=== PATIENT | male | born 1940 ===

== ENCOUNTER 2017-11-13 11:29 | Emergency (ER) | payer MEDICAID, MEDICARE, OTHER ==
[2017-11-13 11:38] VITALS: BP 169/60; RESP 18; TEMP 98.5; O2SAT 96
--- NOTE | 2017-11-13 13:05 | ED PDOC ---
HPI: General Adult Time Seen by Provider: 11/13/17 11:39 Chief Complaint (Nursing): Trauma Chief Complaint (Provider): fall and head injury History Per: Patient History/Exam Limitations: no limitations Onset/Duration Of Symptoms: Days (11/13/17) Additional Complaint(s): Lul Olivarez, a 77 year old male with a past medical history of hypertension, diabetes, chronic leg pain, and atrial fibrillation presents to the ED complaining of falling today morning. Reports he felt dizzy and hit his head. Patient has chronic pain on both legs but the pain on the right foot is greater than left foot. Denies loss of consciousness, shortness of breath, or other complaints. PMD: Kenneth Bergman Against Medical Advice - AMA Patient Left Against Medical Advice: The patient declines admission to the hospital and wishes to leave the Emergency Department. This action is against my medical advice. This decision was made with informed refusal. The patient was told that admission to the hospital is necessary. Explanation of the reasons why were discussed. The risks of leaving were explained to the patient and include, but are not limited to, worsening of known or currently unknown conditions, permanent disability and from undiagnosed or untreated conditions. The patient has the capacity to make this informed decision and understands my explanation of the current medical problem and risks of leaving. The patient voluntarily accepts these risks and signed an AMA form documenting our conversation. The patient was given the opportunity to ask questions and reconsider. The patient was encouraged to return to the Emergency Department at any time for further care. Past Medical History Reviewed: Historical Data, Nursing Documentation, Vital Signs Vital Signs: Last Vital Signs Temp 98.5 F 11/13/17 11:35 Pulse 51 L 11/13/17 15:07 Resp 18 11/13/17 11:35 BP 169/60 H 11/13/17 11:35 Pulse Ox 96 11/13/17 15:07 - Medical History PMH: Atrial Fibrillation, Diabetes, HTN Other PMH: chronic leg pain - Family History Family History: States: Unknown Family Hx - Social History Current smoker - smoking cessation education provided: Yes - Home Medications Home Medications: Ambulatory Orders Medication Instructions Recorded Carvedilol [Coreg] 25 mg PO Q12H 11/13/17 Clopidogrel [Plavix] 75 mg PO DAILY 11/13/17 Ergocalciferol (Vitamin D2) 50,000 unit PO QWK 11/13/17 [Vitamin D2] Gabapentin [Neurontin] 300 mg PO Q8H 11/13/17 Glimepiride [amaRYL] 2 mg PO BID 11/13/17 [id number] Ethyl Esters 1 GM 2 gm PO BID 11/13/17 [Lovaza] Pioglitazone [Actos] 45 mg PO DAILY 11/13/17 Ramipril [Altace] 10 mg PO DAILY 11/13/17 Simvastatin [Zocor] 40 mg PO HS 11/13/17 - Allergies Allergies/Adverse Reactions: Allergies Allergy/AdvReac Type Severity Reaction Status Date / Time No Known Allergies Allergy Verified 11/13/17 11:43 Review of Systems ROS Statement: Except As Marked, All Systems Reviewed And Found Negative Respiratory: Negative for: Shortness of Breath Musculoskeletal: Positive for: Leg Pain (chronic bilateral; greater on the right foot ) Neurological: Positive for: Dizziness. Negative for: Other (loss of consciousness) Physical Exam - Reviewed Nursing Documentation Reviewed: Yes Vital Signs Reviewed: Yes - Physical Exam Appears: Positive for: Well, Non-toxic, No Acute Distress Head Exam: Positive for: ATRAUMATIC, NORMAL INSPECTION, NORMOCEPHALIC Skin: Positive for: Normal Color, Warm, Dry Eye Exam: Positive for: EOMI, Normal appearance, PERRL ENT: Positive for: Normal ENT Inspection Neck: Positive for: Normal, Painless ROM, Supple. Negative for: Decreased ROM Cardiovascular/Chest: Positive for: Regular Rate, Rhythm. Negative for: Murmur , Bradycardia Respiratory: Positive for: Normal Breath Sounds. Negative for: Accessory Muscle Use, Wheezing, Respiratory Distress Gastrointestinal/Abdominal: Positive for: Normal Exam, Bowel Sounds, Soft. Negative for: Tenderness, Guarding Back: Positive for: Normal Inspection. Negative for: L CVA Tenderness, R CVA Tenderness Extremity: Positive for: Tenderness (right foot diffuse tenderness). Negative for: Swelling, Other (redness ) Neurologic/Psych: Positive for: Alert, Oriented (x3) - ECG ECG: Positive for: Interpreted By Me, Viewed By Me ECG Rhythm: Positive for: Normal QRS, Normal ST Segment, Sinus Bradycardia Rate: 51 O2 Sat by Pulse Oximetry: 96 Medical Decision Making Medical Decision Making: Time: 12:06 Initial Impression: fall, dizziness, and foot pain Differential Diagnosis includes but is not limited to: Syncope, Atrial fibrillation, r/o intracranial bleeding Initial Plan: --Head w/o contrast [CT] --EKG --BMP --Troponin I --CBC --Partial thromboplastin time [COAG] --Prothrombin time [COAG] --Right foot X-ray --Hip Bi with pelvis fall protocol --Reevaluation --Patient refused blood work Time: 13:40 FINDINGS: HEMORRHAGE: No intracranial hemorrhage. 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 Diffuse cerebral atrophy. Moderate chronic periventricular white matter microvascular ischemic changes. VENTRICLES: Prominent in excess of cerebral atrophy. CALVARIUM: Unremarkable. PARANASAL SINUSES: Unremarkable as visualized. No significant inflammatory changes. MASTOID AIR CELLS: Unremarkable as visualized. No inflammatory changes. OTHER FINDINGS: None. IMPRESSION: No acute intracranial pathology. 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 Time: 13:41 FINDINGS: BONES: Diffuse osteopenia. No acute fracture. JOINTS: Degenerative changes. SOFT TISSUES: First digit swelling. OTHER FINDINGS: Inferior plantar calcaneal spur. IMPRESSION: No demonstrated acute fracture or dislocation. Diffuse osteopenia limits sensitivity for radio occult fractures. If there is clinical concern for acute fracture, MRI can be obtained for further evaluation. Documented by Radha Guy acting as a scribe for Sundar Jim MD. All medical record entries made by the Scribe were at my direction and personally dictated by me. I have reviewed the chart and agree that the record accurately reflects my personal performance of the history, physical exam, medical decision making, and the department course for this patient. I have also personally directed, reviewed, and agree with the discharge instructions and disposition. Disposition - Clinical Impression Clinical Impression: Fall, Chronic leg pain, Left against medical advice - Patient ED Disposition Is Patient to be Admitted: No Doctor Will See Patient In The: Office Counseled Patient/Family Regarding: Studies Performed, Diagnosis, Need For Followup - Disposition Referrals: Kenneth Bergman MD [Family Provider] - Disposition: Against Medical Advice Disposition Time: 15:05 Condition: GOOD Additional Instructions: Follow up with your PCP in 2-3 days. Instructions: Preventing Falls in the Older Adult, Chronic Pain (DC), Leaving Against Medical Advice Print Language: KENYAN
[2017-11-13 13:11] VITALS: PULSE 51
--- NOTE | 2017-11-13 13:18 | CT ---
PROCEDURE: CT HEAD WITHOUT CONTRAST. HISTORY: dizziness head injury COMPARISON: CT head dated 12/15/2013. TECHNIQUE: Axial computed tomography images were obtained through the head/brain without intravenous contrast. Radiation dose: Total exam DLP = 869.9 mGy-cm. This CT exam was performed using one or more of the following dose reduction techniques: Automated exposure control, adjustment of the mA and/or kV according to patient size, and/or use of iterative reconstruction technique. FINDINGS: HEMORRHAGE: No intracranial hemorrhage. 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 Diffuse cerebral atrophy. Moderate chronic periventricular white matter microvascular ischemic changes. VENTRICLES: Prominent in excess of cerebral atrophy. CALVARIUM: Unremarkable. PARANASAL SINUSES: Unremarkable as visualized. No significant inflammatory changes. MASTOID AIR CELLS: Unremarkable as visualized. No inflammatory changes. OTHER FINDINGS: None. IMPRESSION: No acute intracranial pathology. 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
--- NOTE | 2017-11-13 13:34 | RAD ---
PROCEDURE: Right Foot Radiographs. HISTORY: foot pain COMPARISON: None. FINDINGS: BONES: Diffuse osteopenia. No acute fracture. JOINTS: Degenerative changes. SOFT TISSUES: First digit swelling. OTHER FINDINGS: Inferior plantar calcaneal spur. IMPRESSION: No demonstrated acute fracture or dislocation. Diffuse osteopenia limits sensitivity for radio occult fractures. If there is clinical concern for acute fracture, MRI can be obtained for further evaluation.
--- NOTE | 2017-11-13 18:53 | CARD ---
APPROVED REPORT EKG Measurement Heart [id number] <Conclusion> Sinus bradycardia Otherwise normal ECG
== END 2017-11-13 16:02 | disposition left against medical advice (07) ==
LOC: H.ER 11:29
DX: G89.29 Other chronic pain (principal); M79.605 Pain in left leg; E11.9 Type 2 diabetes mellitus without complications; I48.91 Unspecified atrial fibrillation; I10 Essential (primary) hypertension; F17.200 Nicotine dependence, unspecified, uncomplicated

== ENCOUNTER 2017-11-14 11:25 | Inpatient (IN) | payer OTHER ==
--- NOTE | 2017-11-14 11:56 | ED PDOC ---
Lower Extremity Pain/Injury Time Seen by Provider: 11/14/17 11:44 Chief Complaint (Nursing): Lower Extremity Problem/Injury History Per: Family Onset/Duration Of Symptoms: Days (2) Current Symptoms Are (Timing): Still Present Severity: Moderate Pain Scale Rating Of: 4 Additional Complaint(s): Fell 2 days ago with injury to hip. Seen yesterday but refused to stay in hospital. Unable to ambulate secondary to low back and hip pain. No focal weakness. - Hip Description Of Injury: Fell Past Medical History Vital Signs: Last Vital Signs Temp 98.2 F 11/14/17 11:27 Pulse 68 11/14/17 11:27 Resp 16 11/14/17 11:27 BP 191/97 H 11/14/17 11:27 Pulse Ox 100 11/14/17 11:27 - Medical History PMH: Atrial Fibrillation, Diabetes, HTN Denies: Hepatitis, HIV, Seizures, Sexually Transmitted Disease - Family History Family History: States: Unknown Family Hx - Home Medications Home Medications: Ambulatory Orders Medication Instructions Recorded Carvedilol [Coreg] 25 mg PO Q12H 11/13/17 Clopidogrel [Plavix] 75 mg PO DAILY 11/13/17 Ergocalciferol (Vitamin D2) 50,000 unit PO QWK 11/13/17 [Vitamin D2] Gabapentin [Neurontin] 300 mg PO Q8H 11/13/17 Glimepiride [amaRYL] 2 mg PO BID 11/13/17 Rqndb-6-Rhnf Ethyl Esters 1 GM 2 gm PO BID 11/13/17 [Lovaza] Pioglitazone [Actos] 45 mg PO DAILY 11/13/17 Ramipril [Altace] 10 mg PO DAILY 11/13/17 Simvastatin [Zocor] 40 mg PO HS 11/13/17 - Allergies Allergies/Adverse Reactions: Allergies Allergy/AdvReac Type Severity Reaction Status Date / Time No Known Allergies Allergy Verified 11/13/17 11:43 Review of Systems ROS Statement: Except As Marked, All Systems Reviewed And Found Negative Musculoskeletal: Positive for: Back Pain, Leg Pain Neurological: Positive for: Weakness Physical Exam - Reviewed Nursing Documentation Reviewed: Yes Vital Signs Reviewed: Yes - Physical Exam Appears: Positive for: Non-toxic, No Acute Distress Head Exam: Positive for: ATRAUMATIC, NORMAL INSPECTION, NORMOCEPHALIC Skin: Positive for: Normal Color, Warm, DRY Eye Exam: Positive for: EOMI, Normal appearance, PERRL ENT: Positive for: Normal ENT Inspection Neck: Positive for: Normal, Painless ROM Cardiovascular/Chest: Positive for: Regular Rate, Rhythm Respiratory: Positive for: CNT, Normal Breath Sounds Gastrointestinal/Abdominal: Positive for: Normal Exam, Bowel Sounds, Soft Back: Positive for: Normal Inspection, Vertebral Tenderness (lower) Extremity: Positive for: Other (Bilat hip tenderness). Negative for: Deformity Neurologic/Psych: Positive for: Alert. Negative for: Motor/Sensory Deficits - Laboratory Results Result Diagrams: 11/14/17 13:35 11/14/17 13:35 - ECG O2 Sat by Pulse Oximetry: 100 Disposition - Clinical Impression Clinical Impression: Diabetes type 2, uncontrolled, Gait disturbance - Patient ED Disposition Is Patient to be Admitted: Yes - Disposition Disposition Time: 14:38 Condition: FAIR Forms: [facility] [facility] (Spanish) - Pt Status Changed To: Hospital Disposition Of: Inpatient - Admit Certification Admit to Inpatient:: After my assessment, the patient will require hospitalization for at least two midnights. This is because of the severity of symptoms shown, intensity of services needed, and/or the medical risk in this patient being treated as an outpatient. - POA Present On Arrival: None
[2017-11-14 13:40] LABS: BASO # 0.1 K/uL (0.0-0.2); BASO % 1.3 % (0.0-2.0); EOS # 0.1 K/uL (0.0-0.7); EOS % 1.1 % (0.0-4.0); HEMOGLOBIN 13.9 g/dL (12.0-18.0); LYMPH # 1.1 K/uL (1.0-4.3); LYMPH % 17.6 % (20.0-40.0); MEAN CELL VOLUME 91.4 fl (80.0-94.0); MEAN CORPUSCULAR HEMOGLOBIN 29.9 pg (27.0-31.0); MEAN CORPUSCULAR HGB CONC 32.7 g/dL (33.0-37.0); MEAN PLATELET VOLUME 8.8 fl (7.2-11.7); MONO # 0.6 K/uL (0.0-0.8); MONO % 9.8 % (0.0-10.0); NEUT # 4.4 K/uL (1.8-7.0); NEUT % 70.2 % (50.0-75.0); NRBC % 0.1 % (0.0-0.0); RBC 4.65 Mil/uL (4.40-5.90); RED CELL DISTRIBUTION WIDTH 14.9 % (11.5-14.5); WHITE BLOOD COUNT 6.3 K/uL (4.8-10.8)
[2017-11-14 13:48] LABS: ALB/GLOB RATIO 1.1 (1.0-2.1); ALBUMIN 3.9 g/dL (3.5-5.0); ALT/SGPT 27 U/L (21-72); AST/SGOT 20 U/L (17-59); BLOOD UREA NITROGEN 16 mg/dl (9-20); CALCIUM 10.2 mg/dL (8.4-10.2); GFR AFRICAN-AMERICAN > 60; GFR NON-AFRICAN AMERICAN > 60
[2017-11-14] MEDS ORDERED: Insulin Regular 100 units/ml SC STA (14:00)
[2017-11-14] MEDS ORDERED: Sodium Chloride 0.9% 1,000 ML IV STA (14:00)
--- NOTE | 2017-11-14 14:01 | RAD ---
PROCEDURE: Radiographs of the pelvis. HISTORY: trauma COMPARISON: None. FINDINGS: BONES: Pelvic Bones: No evidence of acute displaced fracture Hips: No evidence of acute fracture JOINTS: Sacroiliac Joints: Arthritic degenerative changes Pubic Symphysis: Arthritic changes OTHER FINDINGS: Diffuse vascular calcification. Vascular stent seen at the right proximal femur IMPRESSION: No evidence of acute fracture .
--- NOTE | 2017-11-14 14:06 | RAD ---
PROCEDURE: Radiographs of the Lumbar Spine. HISTORY: trauma COMPARISON: No prior. FINDINGS: BONES: There is a age indeterminate mild compression deformity at the superior endplate of L5 and L4. Diffuse osteopenia is noted. DISC SPACES: Mild degenerative disc changes noted. OTHER FINDINGS: None. IMPRESSION: Diffuse osteopenia. Mild age indeterminate compression deformity at the superior endplate of L4 and L5.
--- NOTE | 2017-11-14 15:03 | CP.PCM.HP ---
History of Present Illness - History of Present Illness History of Present Illness: 77 yo male with history of HTN, DM2, chronic leg pain and AFib came back with the same complaint of leg pain. Patient claimed he had been non-ambulatory for about 2 yrs because of pain on both leg and had been dependent on staying on the wheel chair at home. Attempted to stand yesterday and got dizzy and fell. Pain on both legs got worse and was seen yesterday in the ER. Xrays of the LS spine, pelvis and foot were negative for fracture. CT scan of the head was negative for bleed. He was advised to stay but refused. He is back again because of the persistent leg pain and is now willing to stay. Denied bowel or urinary dysfunction. Present on Admission - Present on Admission Any Indicators Present on Admission: No History of DVT/PE: No History of Uncontrolled Diabetes: No Urinary Catheter: No Decubitus Ulcer Present: No Review of Systems - Review of Systems All systems: reviewed and no additional remarkable complaints except (aside from those mentioned above, 14 point system review were negative by me) Past Patient History - Tetanus Immunizations Tetanus Immunization: Unknown - Past Social History Smoking Status: Heavy Smoker > 10 Cigarettes Daily Alcohol: None Drugs: Denies - CARDIAC Hx Atrial Fibrillation: Yes Hx Hypertension: Yes - PULMONARY Hx Tuberculosis: No - NEUROLOGICAL Hx Seizures: No - ENDOCRINE/METABOLIC Hx Endocrine Disorders: Yes Hx Diabetes Mellitus Type 2: Yes - HEMATOLOGICAL/ONCOLOGICAL Hx Human Immunodeficiency Virus (HIV): No - GENITOURINARY/GYNECOLOGICAL Hx Sexually Transmitted Disorders: No - PSYCHIATRIC Hx Substance Use: Yes - ANESTHESIA Hx Anesthesia: Yes Hx Anesthesia Reactions: No Hx Malignant Hyperthermia: No Meds Allergies/Adverse Reactions: Allergies Allergy/AdvReac Type Severity Reaction Status Date / Time No Known Allergies Allergy Verified 11/13/17 11:43 Physical Exam - Constitutional Appears: No Acute Distress, Combative, Agitated - Head Exam Head Exam: ATRAUMATIC - Eye Exam Eye Exam: absent: Scleral icterus - ENT Exam ENT Exam: Mucous Membranes Moist - Neck Exam Neck exam: Negative for: Meningismus - Respiratory Exam Respiratory Exam: absent: Rhonchi, Wheezes, Respiratory Distress - Cardiovascular Exam Cardiovascular Exam: REGULAR RHYTHM, +S1, +S2 - GI/Abdominal Exam GI & Abdominal Exam: Soft. absent: Tenderness - Rectal Exam Rectal Exam: Deferred - Extremities Exam Extremities exam: Positive for: tenderness (on both calves on mild palpation), pedal pulses present. Negative for: normal inspection (dried and thickened scaly skin with hyperpigmentation on anterior aspect of both legs) - Neurological Exam Neurological exam: Alert (confused and combative ) - Psychiatric Exam Psychiatric exam: Agitated - Skin Skin Exam: Dry Results - Vital Signs Recent Vital Signs: Last Vital Signs Temp 98.2 F 11/14/17 11:27 Pulse 68 11/14/17 11:27 Resp 16 11/14/17 11:27 BP 191/97 H 11/14/17 11:27 Pulse Ox 100 11/14/17 14:38 - Labs Result Diagrams: 11/14/17 13:35 11/14/17 13:35 Labs: Laboratory Results - last 24 hr 11/14/17 11/14/17 13:35 13:35 WBC 6.3 RBC 4.65 Hgb 13.9 Hct 42.5 MCV 91.4 MCH 29.9 MCHC 32.7 L RDW 14.9 H Plt Count 121 L MPV 8.8 Neut % (Auto) 70.2 Lymph % (Auto) 17.6 L [place] % (Auto) 9.8 Eos % (Auto) 1.1 Baso % (Auto) 1.3 Neut # (Auto) 4.4 Lymph # (Auto) 1.1 [place] # (Auto) 0.6 Eos # (Auto) 0.1 Baso # (Auto) 0.1 Sodium 138 Potassium 4.6 Chloride 98 Carbon Dioxide 28 Anion Gap 17 BUN 16 Creatinine 0.8 Est GFR ( Amer) > 60 Est GFR (Non-Af Amer) > 60 Random Glucose 354 H Calcium 10.2 Total Bilirubin 0.7 AST 20 ALT 27 Alkaline Phosphatase 75 Total Protein 7.3 Albumin 3.9 Globulin 3.4 Albumin/Globulin Ratio 1.1 Assessment & Plan - Assessment and Plan (Free Text) Assessment: 77 yo male with history of HTN, DM2, chronic leg pain and AFib came back with complaint of bilateral leg pain. Pain has been chronic for 2 years but recently got worse after a fall 2 days ago. 1. Leg Pain R/O PVD venous and arterial doppler of both legs PT evaluation and management refer to social service for placement Neurontin 300mg PO q 8hrs Plavix 75mg PO daily 2. DM2 BS uncontrolled accuchek ACHS with moderate Lispro coverage HgA1C, BMP in am Glucotrol 5mg PO daily (Amaryl is non-formulary) Actos 45mg PO daily 3. HTN BP elevated Coreg 25mg PO q 12hrs Altace 10mg PO daily 4. DVT prophylaxis Lovenox 40mg SC daily
[2017-11-14] MEDS ORDERED: Ergocalciferol 50,000 Intl Units Cap PO SCH (15:30)
[2017-11-14] MEDS ORDERED: Insulin Regular 100 units/ml ONE (16:17)
[2017-11-14] MEDS: Oxycodone/Acetaminophen 5/325 mg Tab PO PRN ×2 (16:21→23:35)
[2017-11-14] MEDS: Omega-3-Acid Ethyl Esters 1 GM Cap PO SCH (17:05)
[2017-11-14] MEDS: Enoxaparin 40 mg Syringe SC SCH (18:04)
[2017-11-14] MEDS: Insulin Lispro (humaLOG) 100 Units/ml Inj SC SCH ×2 (19:22→22:30)
--- NOTE | 2017-11-14 20:41 | US ---
EXAM: US Duplex Bilateral Lower Extremity Arteries CLINICAL HISTORY: 77 years old, male; Pain; Leg, lower; Bilateral; Additional info: Bilateral leg pain TECHNIQUE: Real-time ultrasound scan of the arteries of the bilateral lower extremities with 2-D celis scale, color Doppler flow and spectral waveform analysis. COMPARISON: No relevant prior studies available. FINDINGS: RIGHT OSTOMY NURSE: 140 cm/s, monophasic SFA proximal: 143 cm/s, monophasic SFA mid: 242 cm/s, monophasic SFA distal: 90 cm/s, monophasic Popliteal: 60 cm/s, monophasic VALERY: Not visualized RESTAURANT BUSSER: Not visualized DPA: Not visualized LEFT OSTOMY NURSE: 242 cm/s, monophasic SFA proximal: 153 cm/s, monophasic SFA mid: 128 cm/s, monophasic SFA distal: 68 cm/s, monophasic Popliteal: 95 cm/s, monophasic VALERY: Not visualized RESTAURANT BUSSER: Not visualized DPA: Not visualized IMPRESSION: 1. 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 2. Nonvisualization of calf arteries. Occlusion not excluded.
[2017-11-15 07:20] LABS: BASO % 0.7 % (0.0-2.0); EOS # 0.1 K/uL (0.0-0.7); EOS % 1.6 % (0.0-4.0); HEMOGLOBIN 12.1 g/dL (12.0-18.0); LYMPH # 1.4 K/uL (1.0-4.3); LYMPH % 24.7 % (20.0-40.0); MEAN CELL VOLUME 91.9 fl (80.0-94.0); MEAN CORPUSCULAR HEMOGLOBIN 29.4 pg (27.0-31.0); MEAN PLATELET VOLUME 9.1 fl (7.2-11.7); MONO # 0.6 K/uL (0.0-0.8); MONO % 10.7 % (0.0-10.0); NEUT # 3.5 K/uL (1.8-7.0); NEUT % 62.3 % (50.0-75.0); NRBC % 0.1 % (0.0-0.0); RBC 4.1 Mil/uL (4.40-5.90); RED CELL DISTRIBUTION WIDTH 15.1 % (11.5-14.5); WHITE BLOOD COUNT 5.6 K/uL (4.8-10.8)
[2017-11-15 07:52] LABS: BLOOD UREA NITROGEN 25 mg/dl (9-20); CALCIUM 9.3 mg/dL (8.4-10.2); GFR AFRICAN-AMERICAN > 60; GFR NON-AFRICAN AMERICAN 54
[2017-11-15] MEDS: Oxycodone/Acetaminophen 5/325 mg Tab PO PRN ×2 (11:05→22:36)
[2017-11-15] MEDS: Enoxaparin 40 mg Syringe SC SCH (11:07)
[2017-11-15] MEDS: GlipiZIDE 10 mg SR Tab PO SCH (11:07)
[2017-11-15] MEDS: Insulin Lispro (humaLOG) 100 Units/ml Inj SC SCH ×4 (11:08→22:40)
[2017-11-15] MEDS: Omega-3-Acid Ethyl Esters 1 GM Cap PO SCH ×2 (11:08→17:17)
[2017-11-15] MEDS: Pantoprazole 40 mg EC Tab PO SCH (11:09)
--- NOTE | 2017-11-15 14:38 | CP.PCM.PN ---
Subjective - Date & Time of Evaluation Date of Evaluation: 11/15/17 Time of Evaluation: 13:00 - Subjective Subjective: Patient seen and examined. Still with pain on both legs. Objective - Vital Signs/Intake and Output Vital Signs (last 24 hours): Temp Pulse Resp BP Pulse Ox 98.2 F 56 L 20 136/78 92 L 11/15/17 08:45 11/15/17 08:45 11/15/17 08:45 11/15/17 11:10 11/15/17 08:45 - Medications Medications: Current Medications Atorvastatin Calcium (Lipitor) 20 mg PO HS [facility] Last Admin: 11/14/17 23:26 Dose: 20 mg Carvedilol (Coreg) 12.5 mg PO Q12@0900,2100 [facility] Last Admin: 11/15/17 11:09 Dose: 12.5 mg Clopidogrel Bisulfate (Plavix) 75 mg PO DAILY [facility] Last Admin: 11/15/17 11:07 Dose: 75 mg Docusate Sodium (Colace) 100 mg PO BID [facility] Last Admin: 11/15/17 11:08 Dose: 100 mg Enoxaparin Sodium (Lovenox) 40 mg SC DAILY [facility] PRN Reason: Protocol Last Admin: 11/15/17 11:07 Dose: 40 mg Ergocalciferol (Drisdol 50,000 Intl Units Cap) 1 cap PO QWK [facility] Gabapentin (Neurontin) 300 mg PO Q8H [facility] Last Admin: 11/15/17 11:06 Dose: 300 mg Glipizide (Glucotrol Xl) 10 mg PO DAILY [facility] Last Admin: 11/15/17 11:07 Dose: 10 mg Insulin Human Lispro (Humalog) 0 units SC [facility] PRN Reason: Protocol Last Admin: 11/15/17 12:21 Dose: 8 units Lactic Acid (Lac-Hydrin 12% Lotion (225 G)) 1 applic TOP TID [facility] Metformin HCl (Glucophage) 500 mg PO BIDWM [facility] Dpyja-7-Axaf Ethyl Esters (Lovaza) 2 gm PO BID [facility] Last Admin: 11/15/17 11:08 Dose: 2 gm Oxycodone/Acetaminophen (Percocet 5/325 Mg Tab) 1 tab PO Q6 PRN PRN Reason: Pain, moderate (4-7) Stop: 11/17/17 16:09 Last Admin: 11/15/17 11:05 Dose: 1 tab Pantoprazole Sodium (Protonix Ec Tab) 40 mg PO DAILY [facility] Last Admin: 11/15/17 11:09 Dose: 40 mg Pioglitazone HCl (Actos) 45 mg PO DAILY [facility] Last Admin: 11/15/17 11:09 Dose: 45 mg Ramipril (Altace) 10 mg PO DAILY [facility] Last Admin: 11/15/17 11:10 Dose: 10 mg - Labs Labs: 11/15/17 05:30 11/15/17 05:30 - Constitutional Appears: No Acute Distress - Head Exam Head Exam: ATRAUMATIC - Eye Exam Eye Exam: absent: Scleral icterus - ENT Exam ENT Exam: Mucous Membranes Moist - Neck Exam Neck Exam: absent: Meningismus - Respiratory Exam Respiratory Exam: absent: Rhonchi, Wheezes, Respiratory Distress - Cardiovascular Exam Cardiovascular Exam: REGULAR RHYTHM, +S1, +S2 - GI/Abdominal Exam GI & Abdominal Exam: Soft. absent: Tenderness - Rectal Exam Rectal Exam: Deferred - Extremities Exam Extremities Exam: Tenderness (tenderness on both legs, front and back). absent : Normal Inspection - Neurological Exam Neurological Exam: Alert - Psychiatric Exam Psychiatric exam: Normal Affect - Skin Skin Exam: Dry, Intact Assessment and Plan - Assessment and Plan (Free Text) Assessment: 77 yo male with history of HTN, DM2, chronic leg pain and AFib came back with complaint of bilateral leg pain. Pain has been chronic for 2 years but recently got worse after a fall 2 days ago. 1. Leg Pain R/O PVD PT evaluation and management refer to social service for placement Neurontin 300mg PO q 8hrs Plavix 75mg PO daily arterial doppler: vascular disease without occlusion; non-visualization of calf arteries, occlusion could not be excluded consult with Dr Trevizo for possible angiogram 2. DM2 BS uncontrolled accuchek ACHS with moderate Lispro coverage HgA1C - pending Glucotrol XL 10mg PO daily (Amaryl is non-formulary) Actos 45mg PO daily Metformin 500mg PO q 12hrs 3. HTN BP elevated reduce Coreg to 12.5mg since patient has been bradycardic Altace 10mg PO daily 4. DVT prophylaxis Lovenox 40mg SC daily
[2017-11-16 00:52] VITALS: RESP 18
[2017-11-16] MEDS ORDERED: Albuterol 0.083% Inhal Sol (2.5 mg/3 mL) UD INH STA (06:20)
[2017-11-16 08:29] VITALS: BP 127/56; TEMP 98.1
[2017-11-16] MEDS: Enoxaparin 40 mg Syringe SC SCH (08:55)
[2017-11-16] MEDS: Insulin Lispro (humaLOG) 100 Units/ml Inj SC SCH (08:59)
[2017-11-16] MEDS: GlipiZIDE 10 mg SR Tab PO SCH (08:59)
[2017-11-16] MEDS: Omega-3-Acid Ethyl Esters 1 GM Cap PO SCH (09:01)
[2017-11-16] MEDS: Pantoprazole 40 mg EC Tab PO SCH (09:02)
[2017-11-16 09:36] VITALS: BMI 47.5
[2017-11-16] MEDS ORDERED: Magnesium Hydroxide Susp 30 ml UD PO PRN (09:49)
[2017-11-16] MEDS ORDERED: Insulin Lispro (humaLOG) 100 Units/ml Inj SC SCH (09:51)
--- NOTE | 2017-11-16 10:02 | US ---
PROCEDURE: Bilateral lower extremity venous duplex Doppler. HISTORY: rule out DVT COMPARISON: None available. TECHNIQUE: Bilateral common femoral, superficial femoral, and popliteal veins were evaluated. Flow was assessed with color Doppler, compressibility, assessment of phasic flow and augmentation response. The posterior tibial veins were not visualized. FINDINGS: COMMON FEMORAL VEIN: Right CFV: Unremarkable. Left CFV: Unremarkable. SUPERFICIAL FEMORAL VEIN: Right SFV: Unremarkable. Left SFV: Unremarkable. POPLITEAL VEIN: Right Popliteal: Unremarkable. Left Popliteal: Unremarkable. POSTERIOR TIBIAL VEIN: Right PTV: Unremarkable. Left PTV: Unremarkable. OTHER FINDINGS: There is subcutaneous edema. IMPRESSION: No evidence of deep venous thrombosis. A preliminary report was provided by [employer] services.
--- NOTE | 2017-11-16 10:24 | CP.PCM.PN ---
<Logan Geiger - Last Filed: 11/16/17 14:23> Subjective - Date & Time of Evaluation Date of Evaluation: 11/16/17 Time of Evaluation: 09:00 - Subjective Subjective: Pt examined at bedside, resting in bed. Denies significant overnight events. Reports unable to ambulate 2/2 extreme bilateral lower extremity pain. R lower extremity pain starts at hip and progressively worsens towards dorsum of foot. Pain is tender to touch and alleviated with slight elevation. L lower extremity pain is below the knee, and he is able to flex at the hip and knee. Denies: CP/ SOB/N/V/dizziness. Objective - Vital Signs/Intake and Output Vital Signs (last 24 hours): Temp Pulse Resp BP Pulse Ox 98.1 F 56 L 18 127/56 L 91 L 11/16/17 08:28 11/16/17 08:58 11/16/17 08:28 11/16/17 08:58 11/16/17 00:51 - Medications Medications: Current Medications Atorvastatin Calcium (Lipitor) 20 mg PO HS [facility] Last Admin: 11/15/17 22:29 Dose: 20 mg Carvedilol (Coreg) 12.5 mg PO Q12@0900,2100 [facility] Last Admin: 11/16/17 08:58 Dose: Not Given Clopidogrel Bisulfate (Plavix) 75 mg PO DAILY [facility] Last Admin: 11/16/17 09:02 Dose: 75 mg Docusate Sodium (Colace) 100 mg PO BID [facility] Last Admin: 11/16/17 08:55 Dose: 100 mg Enoxaparin Sodium (Lovenox) 40 mg SC DAILY [facility] PRN Reason: Protocol Last Admin: 11/16/17 08:55 Dose: 40 mg Ergocalciferol (Drisdol 50,000 Intl Units Cap) 1 cap PO QWK [facility] Gabapentin (Neurontin) 300 mg PO Q8H [facility] Last Admin: 11/16/17 08:54 Dose: 300 mg Glipizide (Glucotrol Xl) 10 mg PO DAILY [facility] Last Admin: 11/16/17 08:59 Dose: 10 mg Insulin Human Lispro (Humalog) 0 units SC ACHS [facility] PRN Reason: Protocol Lactic Acid (Lac-Hydrin 12% Lotion (225 G)) 1 applic TOP TID [facility] Last Admin: 11/16/17 09:02 Dose: 1 applic Magnesium Hydroxide (Milk Of Magnesia) 15 ml PO QID PRN PRN Reason: Constipation Metformin HCl (Glucophage) 500 mg PO BIDWM [facility] Last Admin: 11/16/17 08:55 Dose: 500 mg Eskgg-5-Spru Ethyl Esters (Lovaza) 2 gm PO BID [facility] Last Admin: 11/16/17 09:01 Dose: 2 gm Oxycodone/Acetaminophen (Percocet 5/325 Mg Tab) 1 tab PO Q6 PRN PRN Reason: Pain, moderate (4-7) Stop: 11/17/17 16:09 Last Admin: 11/15/17 22:36 Dose: 1 tab Pantoprazole Sodium (Protonix Ec Tab) 40 mg PO DAILY [facility] Last Admin: 11/16/17 09:02 Dose: 40 mg Pioglitazone HCl (Actos) 45 mg PO DAILY [facility] Last Admin: 11/16/17 09:02 Dose: 45 mg Ramipril (Altace) 10 mg PO DAILY [facility] Last Admin: 11/16/17 08:54 Dose: 10 mg - Labs Labs: 11/15/17 05:30 11/15/17 05:30 - Constitutional Appears: No Acute Distress - Eye Exam Eye Exam: EOMI - Neck Exam Neck Exam: Full ROM - Respiratory Exam Respiratory Exam: Clear to Ausculation Bilateral, NORMAL BREATHING PATTERN. absent: Wheezes - Cardiovascular Exam Cardiovascular Exam: +S1, +S2, Murmur (Systolic ) - GI/Abdominal Exam GI & Abdominal Exam: Soft, Normal Bowel Sounds. absent: Tenderness - Extremities Exam Extremities Exam: Calf Tenderness (R), Tenderness. absent: Full ROM - Neurological Exam Neurological Exam: Alert, Awake, CN II-XII Intact, Oriented x3 - Psychiatric Exam Psychiatric exam: Normal Affect, Normal Mood Assessment and Plan - Assessment and Plan (Free Text) Plan: 77 yo M with pmhx of Afib, HTN, DM2, and chronic BL lower extremity pain presented with exacerbation of lower leg pain. 1) Leg pain due to PAD - BL lower extremity: L>R - r/o PVD: Arterial [id number]/17/18: vascular disease w/o occlusion; nonvisualization of calf arteries; occlusion couldnt be r/o. - Cardiology consult Dr. Trevizo: pending; possible angiogram - Venous duplex: negative for DVT - Pain management: Neuronin 300 mg PO q8; percocet 5mg/325mg - Clopidogrel Bisulfate 75 mg PO qD - PT eval/mgmt - director of community services: pending 2) DM2 - Uncontrolled - HBA1C: 12.4 - Glipizide 10 mg PO qDaily - Pioglitazone hcl 45 mg PO qDaily - Metformin 500 mg PO BID - SSI: Humulog increase - Atorvastatin 20 mg PO QHS - accucheck ACHS 3) HTN - Coreg 12.5mg reduced, 2/2 bradycardia - Ramipril 10 mg PO qDaily 4) Medical noncompliance on admission - Psych: Coherent thought process. no need for psych admission; no need 1 to 1; consider home health or prison if pt is agreeable. - Pt coherent and able to make his own decisions 5) Prophylaxis - DVT: Lovenox 40 mg SC daily - GI: Pantoprazole Sodium 40 mg PO QDAILY <Tejas Hunter - Last Filed: 11/16/17 15:23> Objective - Vital Signs/Intake and Output Vital Signs (last 24 hours): Temp Pulse Resp BP Pulse Ox 98.1 F 69 18 127/56 L 95 11/16/17 08:28 11/16/17 09:45 11/16/17 08:28 11/16/17 08:58 11/16/17 09:45 - Medications Medications: Current Medications Atorvastatin Calcium (Lipitor) 20 mg PO HS [facility] Last Admin: 11/15/17 22:29 Dose: 20 mg Carvedilol (Coreg) 12.5 mg PO Q12@0900,2100 [facility] Last Admin: 11/16/17 08:58 Dose: Not Given Clopidogrel Bisulfate (Plavix) 75 mg PO DAILY [facility] Last Admin: 11/16/17 09:02 Dose: 75 mg Docusate Sodium (Colace) 100 mg PO BID [facility] Last Admin: 11/16/17 08:55 Dose: 100 mg Enoxaparin Sodium (Lovenox) 40 mg SC DAILY [facility] PRN Reason: Protocol Last Admin: 11/16/17 08:55 Dose: 40 mg Ergocalciferol (Drisdol 50,000 Intl Units Cap) 1 cap PO QWK [facility] Gabapentin (Neurontin) 300 mg PO Q8H [facility] Last Admin: 11/16/17 08:54 Dose: 300 mg Glipizide (Glucotrol Xl) 10 mg PO DAILY [facility] Last Admin: 11/16/17 08:59 Dose: 10 mg Insulin Human Lispro (Humalog) 0 units SC ACHS [facility] PRN Reason: Protocol Last Admin: 11/16/17 12:45 Dose: 8 units Lactic Acid (Lac-Hydrin 12% Lotion (225 G)) 1 applic TOP TID [facility] Last Admin: 11/16/17 12:43 Dose: 1 applic Magnesium Hydroxide (Milk Of Magnesia) 15 ml PO QID PRN PRN Reason: Constipation Metformin HCl (Glucophage) 500 mg PO BIDWM [facility] Last Admin: 11/16/17 08:55 Dose: 500 mg Deqyn-5-Bwbo Ethyl Esters (Lovaza) 2 gm PO BID [facility] Last Admin: 11/16/17 09:01 Dose: 2 gm Oxycodone/Acetaminophen (Percocet 5/325 Mg Tab) 1 tab PO Q6 PRN PRN Reason: Pain, moderate (4-7) Stop: 11/17/17 16:09 Last Admin: 11/15/17 22:36 Dose: 1 tab Pantoprazole Sodium (Protonix Ec Tab) 40 mg PO DAILY [facility] Last Admin: 11/16/17 09:02 Dose: 40 mg Pioglitazone HCl (Actos) 45 mg PO DAILY [facility] Last Admin: 11/16/17 09:02 Dose: 45 mg Ramipril (Altace) 10 mg PO DAILY [facility] Last Admin: 11/16/17 08:54 Dose: 10 mg - Labs Labs: 11/15/17 05:30 11/15/17 05:30 Assessment and Plan - Assessment and Plan (Free Text) Plan: ATTENDING ATTESTATION: Patient was seen and examined. I discussed the case with the resident and agree with the findings and plan as documented in the residents note.
[2017-11-16 10:59] VITALS: PULSE 69; O2SAT 95
--- NOTE | 2017-11-16 12:48 | CP.PCM.CON ---
History of Present Illness - History of Present Illness History of Present Illness: Psychiatry consult called for confusion CC: "I don't know why they called you." HPI: 77 yo male with history of HTN, DM2, chronic leg pain and AFib admitted w / leg pain. Patient is A + O x self and location. He denies depression/anxiety /SI/HI. He reports that he does not understand what happened that brought him to the hospital, but he is agreeable to receiving treatment. He denies acute psychiatric symptoms and does not believe he needs any psychiatric treatment. PPHx: Denies past psychiatric history PMHx: HTN, DM2, Chronic leg pain, Afib ALL: NKDA SHx: From [place], single; lives in the same building as his elderly mother MSE: A + O x 2, calm, cooperative, full range of affect, mood neutral, speech normal, thought process- coherent, thought content no delusions, no hallucations , NO SI/HI; I/J limited by likely dementia Impression: 77 yo male, likely has dementia; no acute psychiatric issues at this time. -No acute psychiatric medications or psychiatric admission indicated at this time -If patient has continued periods of confusion, would recommend neurology consult -Can consider psychology consult for neurocognitive testing to determine the severity of the dementia -No 1:1 indicated at this time for psychiatric reasons -Would recommend SW to set up home health services if the patient is to return home or consider alf placement if the patient is agreeable Past Patient History - Tetanus Immunizations Tetanus Immunization: Unknown - Past Medical History & Family History Past Medical History?: Yes - Past Social History Smoking Status: Heavy Smoker > 10 Cigarettes Daily - CARDIAC Hx Cardiac Disorders: Yes Hx Hypertension: Yes - PULMONARY Hx Respiratory Disorders: No - NEUROLOGICAL Hx Neurological Disorder: No - HEENT Hx HEENT Problems: No - RENAL Hx Chronic Kidney Disease: No - ENDOCRINE/METABOLIC Hx Endocrine Disorders: Yes Hx Diabetes Mellitus Type 2: Yes - HEMATOLOGICAL/ONCOLOGICAL Hx Blood Disorders: No - INTEGUMENTARY Hx Dermatological Problems: No - MUSCULOSKELETAL/RHEUMATOLOGICAL Hx Musculoskeletal Disorders: Yes Hx Falls: Yes Hx Unsteady Gait: Yes - GENITOURINARY/GYNECOLOGICAL Hx Genitourinary Disorders: Yes - PSYCHIATRIC Hx Psychophysiologic Disorder: No Hx Substance Use: No - SURGICAL HISTORY Hx Surgeries: No - ANESTHESIA Hx Anesthesia: Yes Hx Anesthesia Reactions: No Hx Malignant Hyperthermia: No Meds Allergies/Adverse Reactions: Allergies Allergy/AdvReac Type Severity Reaction Status Date / Time No Known Allergies Allergy Verified 11/13/17 11:43 - Medications Medications: Current Medications Atorvastatin Calcium (Lipitor) 20 mg PO HS [facility] Last Admin: 11/15/17 22:29 Dose: 20 mg Carvedilol (Coreg) 12.5 mg PO Q12@0900,2100 [facility] Last Admin: 11/16/17 08:58 Dose: Not Given Clopidogrel Bisulfate (Plavix) 75 mg PO DAILY [facility] Last Admin: 11/16/17 09:02 Dose: 75 mg Docusate Sodium (Colace) 100 mg PO BID [facility] Last Admin: 11/16/17 08:55 Dose: 100 mg Enoxaparin Sodium (Lovenox) 40 mg SC DAILY [facility] PRN Reason: Protocol Last Admin: 11/16/17 08:55 Dose: 40 mg Ergocalciferol (Drisdol 50,000 Intl Units Cap) 1 cap PO QWK [facility] Gabapentin (Neurontin) 300 mg PO Q8H [facility] Last Admin: 11/16/17 08:54 Dose: 300 mg Glipizide (Glucotrol Xl) 10 mg PO DAILY [facility] Last Admin: 11/16/17 08:59 Dose: 10 mg Insulin Human Lispro (Humalog) 0 units SC ACHS [facility] PRN Reason: Protocol Last Admin: 11/16/17 12:45 Dose: 8 units Lactic Acid (Lac-Hydrin 12% Lotion (225 G)) 1 applic TOP TID [facility] Last Admin: 11/16/17 12:43 Dose: 1 applic Magnesium Hydroxide (Milk Of Magnesia) 15 ml PO QID PRN PRN Reason: Constipation Metformin HCl (Glucophage) 500 mg PO BIDWM [facility] Last Admin: 11/16/17 08:55 Dose: 500 mg Xncxq-3-Dhza Ethyl Esters (Lovaza) 2 gm PO BID [facility] Last Admin: 11/16/17 09:01 Dose: 2 gm Oxycodone/Acetaminophen (Percocet 5/325 Mg Tab) 1 tab PO Q6 PRN PRN Reason: Pain, moderate (4-7) Stop: 11/17/17 16:09 Last Admin: 11/15/17 22:36 Dose: 1 tab Pantoprazole Sodium (Protonix Ec Tab) 40 mg PO DAILY [facility] Last Admin: 11/16/17 09:02 Dose: 40 mg Pioglitazone HCl (Actos) 45 mg PO DAILY [facility] Last Admin: 11/16/17 09:02 Dose: 45 mg Ramipril (Altace) 10 mg PO DAILY [facility] Last Admin: 11/16/17 08:54 Dose: 10 mg Results - Vital Signs Recent Vital Signs: Last Vital Signs Temp 98.1 F 11/16/17 08:28 Pulse 69 11/16/17 09:45 Resp 18 11/16/17 08:28 BP 127/56 L 11/16/17 08:58 Pulse Ox 95 11/16/17 09:45 - Labs Result Diagrams: 11/15/17 05:30 11/15/17 05:30 Labs: Laboratory Results - last 24 hr 11/15/17 11/15/17 11/15/17 05:30 15:54 22:36 POC Glucose (mg/dL) 267 H 221 H Hemoglobin A1c 12.4 H 11/16/17 11/16/17 05:37 11:06 POC Glucose (mg/dL) 228 H 319 H Hemoglobin A1c
--- NOTE | 2017-11-16 18:00 | CP.PCM.DIS ---
Provider - Provider Date of Admission: 11/14/17 14:35 Attending physician: Jose Hernandez MD Primary care physician: Dr. Bergman Consults: Dr. Trevizo- cardiology Physical therapy Psychiatry- Dr. Bush Time Spent in preparation of Discharge (in minutes): 25 Hospital Course - Lab Results Lab Results: Micro Results 11/14/17 08:20 Naris MRSA Culture (Admit) - Final MRSA NOT DETECTED Most Recent Lab Values WBC 5.6 K/uL (4.8-10.8) 11/15/17 05:30 RBC 4.10 Mil/uL (4.40-5.90) L 11/15/17 05:30 Hgb 12.1 g/dL (12.0-18.0) 11/15/17 05:30 Hct 37.7 % (35.0-51.0) 11/15/17 05:30 MCV 91.9 fl (80.0-94.0) 11/15/17 05:30 MCH 29.4 pg (27.0-31.0) 11/15/17 05:30 MCHC 32.0 g/dL (33.0-37.0) L 11/15/17 05:30 RDW 15.1 % (11.5-14.5) H 11/15/17 05:30 Plt Count 118 K/uL (130-400) L 11/15/17 05:30 MPV 9.1 fl (7.2-11.7) 11/15/17 05:30 Neut % (Auto) 62.3 % (50.0-75.0) 11/15/17 05:30 Lymph % (Auto) 24.7 % (20.0-40.0) 11/15/17 05:30 [place] % (Auto) 10.7 % (0.0-10.0) H 11/15/17 05:30 Eos % (Auto) 1.6 % (0.0-4.0) 11/15/17 05:30 Baso % (Auto) 0.7 % (0.0-2.0) 11/15/17 05:30 Neut # (Auto) 3.5 K/uL (1.8-7.0) 11/15/17 05:30 Lymph # (Auto) 1.4 K/uL (1.0-4.3) 11/15/17 05:30 [place] # (Auto) 0.6 K/uL (0.0-0.8) 11/15/17 05:30 Eos # (Auto) 0.1 K/uL (0.0-0.7) 11/15/17 05:30 Baso # (Auto) 0.0 K/uL (0.0-0.2) 11/15/17 05:30 Sodium 135 mmol/l (132-148) 11/15/17 05:30 Potassium 4.6 MMOL/L (3.6-5.0) 11/15/17 05:30 Chloride 96 mmol/L (98-107) L 11/15/17 05:30 Carbon Dioxide 33 mmol/L (22-30) H 11/15/17 05:30 Anion Gap 11 (10-20) 11/15/17 05:30 BUN 25 mg/dl (9-20) H 11/15/17 05:30 Creatinine 1.3 mg/dl (0.8-1.5) 11/15/17 05:30 Est GFR ( Amer) > 60 11/15/17 05:30 Est GFR (Non-Af Amer) 54 11/15/17 05:30 POC Glucose (mg/dL) 319 mg/dL (65-110) H 11/16/17 11:06 Random Glucose 266 mg/dL (75-110) H 11/15/17 05:30 Hemoglobin A1c 12.4 % (4.2-6.5) H 11/15/17 05:30 Calcium 9.3 mg/dL (8.4-10.2) 11/15/17 05:30 Total Bilirubin 0.7 mg/dl (0.2-1.3) 11/14/17 13:35 AST 20 U/L (17-59) 11/14/17 13:35 ALT 27 U/L (21-72) 11/14/17 13:35 Alkaline Phosphatase 75 U/L (38-126) 11/14/17 13:35 Total Protein 7.3 G/DL (6.3-8.2) 11/14/17 13:35 Albumin 3.9 g/dL (3.5-5.0) 11/14/17 13:35 Globulin 3.4 gm/dL (2.2-3.9) 11/14/17 13:35 Albumin/Globulin Ratio 1.1 (1.0-2.1) 11/14/17 13:35 - Hospital Course Hospital Course: 77 yo male with history of HTN, DM2, chronic leg pain and AFib came back with the same complaint of leg pain. Patient claimed he had been non-ambulatory for about 2 yrs because of pain on both leg and had been dependent on staying on the wheel chair at home. Attempted to stand yesterday and got dizzy and fell. Pain on both legs got worse and was seen yesterday in the ER. Xrays of the LS spine, pelvis and foot were negative for fracture. CT scan of the head was negative for bleed. He was advised to stay but refused. He was back again because of the persistent leg pain. He was subsequently admitted to the hospital. Arterial dopplers of bilateral lower extremities were performed which revealed arterial stenosis without definite occulusion. Dr. Trevizo was consulted for PAD; however, patient is refusing any further medical or surgical intervention. Upon a long discussion with the patient, he is amenable for discharge to subacute rehabilitation. The patient lives alone and is unable to currently be discharged home as he is too weak to take care of himself. 77 yo M with pmhx of Afib, HTN, DM2, and chronic BL lower extremity pain presented with exacerbation of lower leg pain. 1) Leg pain due to PAD - BL lower extremity: L>R - r/o PVD: Arterial /17/18: vascular disease w/o occlusion; nonvisualization of calf arteries; occlusion couldnt be r/o. - Cardiology consult Dr. Trevizo: pending; possible angiogram - Venous duplex: negative for DVT - Pain management: Neuronin 300 mg PO q8; percocet 5mg/325mg - Clopidogrel Bisulfate 75 mg PO qD - PT eval/mgmt - respiratory services manager: pending 2) DM2 - Uncontrolled - HBA1C: 12.4 - Glipizide 10 mg PO qDaily - Pioglitazone hcl 45 mg PO qDaily - Metformin 500 mg PO BID - SSI: Humulog increase - Atorvastatin 20 mg PO QHS - accucheck ACHS 3) HTN - Coreg 12.5mg reduced, 2/2 bradycardia - Ramipril 10 mg PO qDaily 4) Medical noncompliance on admission - Psych: Coherent thought process. no need for psych admission; no need 1 to 1; consider home health or correction if pt is agreeable. - Pt coherent and able to make his own decisions 5) Prophylaxis - DVT: Lovenox 40 mg SC daily - GI: Pantoprazole Sodium 40 mg PO QDAILY Discharge Exam - Additional Findings Additional findings: - Constitutional Appears: No Acute Distress - Eye Exam Eye Exam: EOMI - Neck Exam Neck Exam: Full ROM - Respiratory Exam Respiratory Exam: Clear to Ausculation Bilateral, NORMAL BREATHING PATTERN. absent: Wheezes - Cardiovascular Exam Cardiovascular Exam: +S1, +S2, Murmur (Systolic ) - GI/Abdominal Exam GI & Abdominal Exam: Soft, Normal Bowel Sounds. absent: Tenderness - Extremities Exam Extremities Exam: Calf Tenderness (R), Tenderness. + Dark skin discoloration bilaterally. absent: Full ROM - Neurological Exam Neurological Exam: Alert, Awake, CN II-XII Intact, Oriented x3 - Psychiatric Exam Psychiatric exam: Normal Affect, Normal Mood Discharge Plan - Follow Up Plan Condition: FAIR Disposition: REHAB FACILITY/REHAB UNIT Instructions: Preventing Falls, Hip Pain (DC), Weakness (GEN) Referrals: Francisco Vieyra MD [Medical Doctor] - Donnie Trevizo MD [Staff Provider] -
--- NOTE | 2017-11-17 10:19 | CP.PCM.CON ---
History of Present Illness - History of Present Illness History of Present Illness: Consultation for evaluation of PVOD HPI: 77 year old male with hx of htn, dm admitted post fall with severe LE pain. At baseline very limited activity. Arterial duplex shows severe PVOD. Review of Systems - Review of Systems Systems not reviewed;Unavailable: Acuity of Condition - Constitutional Constitutional: As Per HPI - EENT Eyes: As Per HPI Ears: As Per HPI Nose/Mouth/Throat: As Per HPI - Cardiovascular Cardiovascular: As Per HPI - Respiratory Respiratory: As Per HPI - Gastrointestinal Gastrointestinal: As Per HPI - Genitourinary Genitourinary: As Per HPI - Reproductive: Male Reproductive:Male: As Per HPI - Musculoskeletal Musculoskeletal: As Per HPI - Integumentary Integumentary: As Per HPI - Neurological Neurological: As Per HPI - Psychiatric Psychiatric: As Per HPI - Endocrine Endocrine: As Per HPI - Hematologic/Lymphatic Hematologic: As Per HPI Past Patient History - Tetanus Immunizations Tetanus Immunization: Unknown - Past Medical History & Family History Past Medical History?: Yes - Past Social History Smoking Status: Heavy Smoker > 10 Cigarettes Daily - CARDIAC Hx Cardiac Disorders: Yes Hx Hypertension: Yes - PULMONARY Hx Respiratory Disorders: No - NEUROLOGICAL Hx Neurological Disorder: No - HEENT Hx HEENT Problems: No - RENAL Hx Chronic Kidney Disease: No - ENDOCRINE/METABOLIC Hx Endocrine Disorders: Yes Hx Diabetes Mellitus Type 2: Yes - HEMATOLOGICAL/ONCOLOGICAL Hx Blood Disorders: No - INTEGUMENTARY Hx Dermatological Problems: No - MUSCULOSKELETAL/RHEUMATOLOGICAL Hx Musculoskeletal Disorders: Yes Hx Falls: Yes Hx Unsteady Gait: Yes - GENITOURINARY/GYNECOLOGICAL Hx Genitourinary Disorders: Yes - PSYCHIATRIC Hx Psychophysiologic Disorder: No Hx Substance Use: No - SURGICAL HISTORY Hx Surgeries: No - ANESTHESIA Hx Anesthesia: Yes Hx Anesthesia Reactions: No Hx Malignant Hyperthermia: No Meds Allergies/Adverse Reactions: Allergies Allergy/AdvReac Type Severity Reaction Status Date / Time No Known Allergies Allergy Verified 11/13/17 11:43 Physical Exam - Constitutional Appears: Well - Head Exam Head Exam: ATRAUMATIC, NORMAL INSPECTION, NORMOCEPHALIC - Eye Exam Eye Exam: EOMI, Normal appearance, PERRL Pupil Exam: NORMAL ACCOMODATION, PERRL - ENT Exam ENT Exam: Mucous Membranes Moist, Normal Exam - Neck Exam Neck exam: Positive for: Normal Inspection - Respiratory Exam Respiratory Exam: Clear to Auscultation Bilateral, NORMAL BREATHING PATTERN - Cardiovascular Exam Cardiovascular Exam: REGULAR RHYTHM, +S1, +S2, Systolic Murmur - GI/Abdominal Exam GI & Abdominal Exam: Normal Bowel Sounds, Soft. absent: Tenderness - Extremities Exam Extremities exam: Positive for: normal inspection Additional comments: pedal pulses absent echymotic and venous stasis changes - Back Exam Back exam: NORMAL INSPECTION - Neurological Exam Neurological exam: Alert, CN II-XII Intact, Oriented x3 - Psychiatric Exam Psychiatric exam: Normal Affect, Normal Mood - Skin Skin Exam: Dry, Intact, Normal Color, Warm Results - Vital Signs Recent Vital Signs: Last Vital Signs Temp 98.1 F 11/16/17 08:28 Pulse 69 11/16/17 09:45 Resp 18 11/16/17 08:28 BP 127/56 L 11/16/17 08:58 Pulse Ox 95 11/16/17 09:45 - Labs Result Diagrams: 11/15/17 05:30 11/15/17 05:30 Labs: Laboratory Results - last 24 hr 11/16/17 11:06 POC Glucose (mg/dL) 319 H Assessment & Plan (1) PVD (peripheral vascular disease) with claudication Assessment and Plan: arterial duplex showing severe PVOD will benefit from peripheral angiogram pt refusing to undergo any invasive procedure med rx with asa, plavix, cilostazol acei , statins Status: Acute (2) Chronic leg pain Assessment and Plan: 2' to ischemia titrate meds Status: Acute (3) Diabetes type 2, uncontrolled Status: Acute (4) Fall Status: Acute (5) Gait disturbance Status: Acute
== END 2017-11-16 16:33 | DRG 301 ==
LOC: H.ER 11:25 → H.ERHOLD 14:35 → H.MEDSURG1 19:28
DX: I70.213 Atherosclerosis of native arteries of extremities with intermittent claudication, bilateral legs (principal); E11.65 Type 2 diabetes mellitus with hyperglycemia; I48.91 Unspecified atrial fibrillation; I10 Essential (primary) hypertension; G89.29 Other chronic pain; F17.210 Nicotine dependence, cigarettes, uncomplicated; F03.90 Unspecified dementia, unspecified severity, without behavioral disturbance, psychotic disturbance, mood disturbance, and anxiety; R00.1 Bradycardia, unspecified; T44.7X5A Adverse effect of beta-adrenoreceptor antagonists, initial encounter; Z91.14 Patient's other noncompliance with medication regimen

== ENCOUNTER 2018-06-20 18:57 | Inpatient (IN) | payer MEDICARE, OTHER ==
[2018-06-20 18:58] VITALS: BMI 47.5
[2018-06-20 19:59] LABS: VENOUS BLOOD GAS BASE EXCESS 0.8 mmol/L (0.0-2.0); VENOUS BLOOD GAS PCO2 56 mmHg (40-60); VENOUS BLOOD GAS PO2 66 mm/Hg (30-55); VENOUS BLOOD PH 7.31 (7.32-7.43)
[2018-06-20 20:14] LABS: BASO # 0.1 K/uL (0.0-0.2); BASO % 0.6 % (0.0-2.0); EOS # 0.2 K/uL (0.0-0.7); EOS % 2.2 % (0.0-4.0); HEMOGLOBIN 12.8 g/dL (12.0-18.0); LYMPH # 1.9 K/uL (1.0-4.3); LYMPH % 21.8 % (20.0-40.0); MEAN CELL VOLUME 91.8 fl (80.0-94.0); MEAN CORPUSCULAR HEMOGLOBIN 29.8 pg (27.0-31.0); MEAN CORPUSCULAR HGB CONC 32.5 g/dL (33.0-37.0); MEAN PLATELET VOLUME 8.5 fl (7.2-11.7); MONO # 0.7 K/uL (0.0-0.8); MONO % 8.4 % (0.0-10.0); NRBC % 0.1 % (0.0-0.0); RBC 4.3 Mil/uL (4.40-5.90); RED CELL DISTRIBUTION WIDTH 14.8 % (11.5-14.5); WHITE BLOOD COUNT 8.9 K/uL (4.8-10.8)
[2018-06-20 20:23] LABS: ALB/GLOB RATIO 1.1 (1.0-2.1); ALBUMIN 3.8 g/dL (3.5-5.0); ALT/SGPT 21 U/L (21-72); AST/SGOT 20 U/L (17-59); BLOOD UREA NITROGEN 30 mg/dl (9-20); CALCIUM 10.1 mg/dL (8.4-10.2); GFR NON-AFRICAN AMERICAN > 60; PROTHROMBIN TIME 11.4 Seconds (9.8-13.1)
[2018-06-20 20:26] LABS: PARTIAL THROMBOPLASTIN TIME 34.5 Seconds (25.6-37.1)
--- NOTE | 2018-06-20 20:31 | ED PDOC ---
HPI: Altered Mental Status Time Seen by Provider: 06/20/18 19:14 Chief Complaint (Nursing): Altered Mental Status Chief Complaint (Provider): Altered Mental Status History Per: Family History/Exam Limitations: Clinical Condition (Altered Mental Status) Usual Baseline: Wheelchair Bound (non ambulatory) Associated Symptoms: Seizure (possible seizure but unwitnessed by assisted staff) Additional Complaint(s): 78 year old male with a hx of HTN, DM, A-Fib, peripheral arterial disease, pressure ulcers and chronic leg pain was brought to ED for altered mental status and seizure. Patient is a poor historian and is non-ambulatory. According to assisted he may have had a seizure but it was unwitnessed by assisted staff. Staff described him as altered and then suddenly returned to baseline. According to family who were present at bedside, the patient has a history of confusion while in the assisted. Family members at bedside confirm that PMD is Dr. Bergman, although assisted paper work says Dr. Aguero and Dr. Larson. Offers no other complaints. PMD: Dr. Kenneth Bergman Past Medical History Reviewed: Historical Data, Nursing Documentation, Vital Signs Vital Signs: Last Vital Signs Temp 97.9 F 06/20/18 19:50 Pulse 135 H 06/20/18 19:50 Resp 23 06/20/18 19:50 BP 155/78 H 06/20/18 19:50 Pulse Ox 98 06/20/18 19:50 - Medical History PMH: Atrial Fibrillation, Diabetes, HTN Denies: Hepatitis, HIV, Chronic Kidney Disease, Seizures, Sexually Transmitted Disease Other PMH: Confusion, peripheral arterial disease, chronic leg pain, pressure ulcers - Surgical History Surgical History: No Surg Hx - Family History Family History: States: Unknown Family Hx - Living Arrangements Living Arrangements: Custodial/Assist [facility] - Home Medications Home Medications: Ambulatory Orders Medication Instructions Recorded Carvedilol [Coreg] 25 mg PO Q12H 11/13/17 Clopidogrel [Plavix] 75 mg PO DAILY 11/13/17 Ergocalciferol (Vitamin D2) 50,000 unit PO QWK 11/13/17 [Vitamin D2] Gabapentin [Neurontin] 300 mg PO Q8H 11/13/17 Glimepiride [amaRYL] 2 mg PO BID 11/13/17 [id number] Ethyl Esters 1 GM 2 gm PO BID 11/13/17 [Lovaza] Pioglitazone [Actos] 45 mg PO DAILY 11/13/17 Ramipril [Altace] 10 mg PO DAILY 11/13/17 Simvastatin [Zocor] 40 mg PO HS 11/13/17 - Allergies Allergies/Adverse Reactions: Allergies Allergy/AdvReac Type Severity Reaction Status Date / Time No Known Allergies Allergy Verified 06/20/18 19:03 Review of Systems ROS Statement: Except As Marked, All Systems Reviewed And Found Negative Constitutional: Positive for: Other (pressure ulcers ). Negative for: Fever Neurological: Positive for: Seizures (possible seizure unwitnessed by assisted staff), Altered Mental Status (became AMS but suddenly returned to baseline ) Physical Exam - Reviewed Nursing Documentation Reviewed: Yes Vital Signs Reviewed: Yes - Physical Exam Appears: Positive for: No Acute Distress. Negative for: Uncomfortable Head Exam: Positive for: ATRAUMATIC, NORMAL INSPECTION, NORMOCEPHALIC Skin: Positive for: Normal Color, Warm, Dry Eye Exam: Positive for: EOMI, Normal appearance, PERRL ENT: Positive for: Other (swelling and ecchymosis on tip of tongue) Neck: Positive for: Normal, Painless ROM, Supple Cardiovascular/Chest: Positive for: Tachycardia, Irregularly Irregular. Negative for: Murmur Respiratory: Positive for: Normal Breath Sounds. Negative for: Respiratory Distress Pulses-Radial (L): 2+ Pulses-Radial (R): 2+ Gastrointestinal/Abdominal: Positive for: Normal Exam, Soft. Negative for: Tenderness Back: Positive for: Other (sacral pressure ulcers ) Extremity: Positive for: Normal ROM, Other (multiple pressure ulcers; one located on right foot). Negative for: Swelling (no leg swelling) Neurologic/Psych: Positive for: Alert, mdm sr II-XII (intacr), Oriented (x1). Negative for: Motor/Sensory Deficits, Aphasia - Laboratory Results Result Diagrams: 06/20/18 19:56 06/20/18 19:56 - ECG ECG Rhythm: Positive for: Normal QRS, Atrial Fibrillation, Nonspecific Changes ( nonspecific ST changes). Negative for: Normal ST Segment Rate: 129 O2 Sat by Pulse Oximetry: 98 (RA) Pulse Ox Interpretation: Normal Medical Decision Making Medical Decision Making: Time: 1916 Initial Impression: Depression, AMS, Seizure, Atrial Fibrillation AMS: ddx include delirium due to infection, associated with assisted, post ictal syndrome, dehydration, electrolyte abnormality CVA is less likely Atrial Fibrillation RVR ddx include CHF Initial Plan: --VBG --CT head w/o contrast --EKG --CMP --Magnesium --Phosphorus --CBC with differentials --PTT --Prothrombin time --CXR --Glucose --Blood culture --Urine culture --Ray --Urinalysis --Cardizem bolus CXR --reviewed and negative. Time: 2120 CT head: FINDINGS: Brain: There is moderate patchy low attenuation of deep white matter with probable areas of old deep white matter or lacunar infarct. Thinning of the cortical mantle in the left occipital lobe consistent with an area of old infarct. Old focal infarct is noted in the paramedian left parieto-occipital region. Bilateral basal ganglia calcifications. There is slight prominence of the peripheral sulci. Ventricles: There is moderate prominence of the central ventricular system. There is mild relative prominence of the temporal horns. Bones/joints: Normal. No acute fracture. 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 Mastoid air cells: Normal as visualized. No mastoid effusion. Auditory system: Debris in the left external auditory canal. Soft tissues: Normal. IMPRESSION: 1. 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 2. Mild diffuse atrophy overall. There is some discordance with greater prominence of the central ventricular system. Some degree of normal pressure hydrocephalus is not excluded. 3. 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 4. Otherwise negative noncontrast head CT. 23:[address] Wood and patient ordered to be admitted inpatient into telemetry. Diagnoses are A-fib with RVR and AMS. Scribe Attestation: Documented by Chayo Maharaj, acting as a scribe for Sundar Jim MD Provider Scribe Attestation: All medical record entries made by the Scribe were at my direction and personally dictated by me. I have reviewed the chart and agree that the record accurately reflects my personal performance of the history, physical exam, medical decision making, and the department course for this patient. I have also personally directed, reviewed, and agree with the discharge instructions and disposition. Disposition - Clinical Impression Clinical Impression: Altered mental status, Afib - Patient ED Disposition Is Patient to be Admitted: Yes Discussed With : Jax Wood Doctor Will See Patient In The: Hospital Counseled Patient/Family Regarding: Studies Performed, Diagnosis - Disposition Disposition Time: 23:56 Condition: FAIR - Pt Status Changed To: Hospital Disposition Of: Inpatient - Admit Certification Admit to Inpatient:: After my assessment, the patient will require hospitalization for at least two midnights. This is because of the severity of symptoms shown, intensity of services needed, and/or the medical risk in this patient being treated as an outpatient. - POA Present On Arrival: Poor Glycemic Control, Pressure Ulcer
[2018-06-20] MEDS ORDERED: Enoxaparin 100 mg Syringe SC STA (23:39)
[2018-06-21] MEDS ORDERED: Ergocalciferol 50,000 Intl Units Cap PO SCH (01:00)
--- NOTE | 2018-06-21 01:07 | CP.PCM.HP ---
<Mukesh Rey - Last Filed: 06/21/18 00:52> History of Present Illness - History of Present Illness History of Present Illness: CC: AMS HPI: 78 y/o man w/ pmh of HTN, DM2, afib, chronic bilateral lower extremity pain is brought from long term by ambulance for AMS. Patient had possible unwitnessed seizure in long term. Patient's niece is at bedside visiting another relative in the hospital. Patient unable to provide history due to AMS , oriented only to self. Remaining history from previous admission and ED visits. Patient previously evaluated for bilateral leg pain but refused intervention at that time. 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 Mild diffuse atrophy overall. There is some discordance with greater prominence of the central ventricular system. Some degree of normal pressure hydrocephalus is not excluded. 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 Otherwise negative noncontrast head CT. XR foot: (preliminary) osteoarthritic joints but no acute fractures or dislocation appreciated blood culture urine culture Cardizem IV 5mg /hr cardizem 10 mg IV once lovenox 90 mg SC once haldol 5 mg IM once ativan 2 mg IV once morphine 2 mg IV once PMD: Dr. Bergman PMH: HTN, DM2, afib, chronic bilateral lower extremity pain meds: see med list PSH: none Fam: non-contributory SOC: former smoker ROS: unable to assess due to acuity of AMS Present on Admission - Present on Admission Any Indicators Present on Admission: Yes History of DVT/PE: No History of Uncontrolled Diabetes: Yes Urinary Catheter: No Decubitus Ulcer Present: Yes Decubitus Ulcer Location: bilateral lateral and medial amlleoli, bilateral heel Review of Systems - Review of Systems Systems not reviewed;Unavailable: Altered Mental Status Past Patient History - Tetanus Immunizations Tetanus Immunization: Unknown - Past Medical History & Family History Past Medical History?: Yes - Past Social History Smoking Status: Heavy Smoker > 10 Cigarettes Daily - CARDIAC Hx Atrial Fibrillation: Yes Hx Hypertension: Yes - PULMONARY Hx Respiratory Disorders: No - NEUROLOGICAL Hx Seizures: No - HEENT Hx HEENT Problems: No - RENAL Hx Chronic Kidney Disease: No - ENDOCRINE/METABOLIC Hx Endocrine Disorders: Yes Hx Diabetes Mellitus Type 2: Yes - HEMATOLOGICAL/ONCOLOGICAL Hx Human Immunodeficiency Virus (HIV): No - INTEGUMENTARY Hx Dermatological Problems: No - MUSCULOSKELETAL/RHEUMATOLOGICAL Hx Musculoskeletal Disorders: Yes Hx Falls: Yes Hx Unsteady Gait: Yes - GENITOURINARY/GYNECOLOGICAL Hx Sexually Transmitted Disorders: No - PSYCHIATRIC Hx Psychophysiologic Disorder: No Hx Substance Use: No - SURGICAL HISTORY Hx Surgeries: No - ANESTHESIA Hx Anesthesia: Yes Hx Anesthesia Reactions: No Hx Malignant Hyperthermia: No Meds Allergies/Adverse Reactions: Allergies Allergy/AdvReac Type Severity Reaction Status Date / Time No Known Allergies Allergy Verified 06/20/18 19:03 Physical Exam - Constitutional Appears: Non-toxic, No Acute Distress, Unkempt, Confused - Head Exam Head Exam: ATRAUMATIC, NORMAL INSPECTION, NORMOCEPHALIC - Eye Exam Eye Exam: Normal appearance - ENT Exam ENT Exam: Mucous Membranes Dry Additional comments: recent anterior tongue laceration possibly to self-bite or other trauma - Respiratory Exam Respiratory Exam: Decreased Breath Sounds. absent: Accessory Muscle Use, Rales , Rhonchi, Wheezes, Respiratory Distress - Cardiovascular Exam Cardiovascular Exam: Tachycardia, Irregular Rhythm - GI/Abdominal Exam GI & Abdominal Exam: Normal Bowel Sounds, Soft. absent: Distended, Tenderness - Extremities Exam Extremities exam: Positive for: calf tenderness (bilateral), tenderness. Negative for: normal capillary refill, pedal edema, pedal pulses present Additional comments: bilateral skin related changes associated w/ CVI and PAD, calf atrophy, pressure ulcers - Neurological Exam Neurological exam: Altered - Psychiatric Exam Psychiatric exam: Agitated Results - Vital Signs Recent Vital Signs: Last Vital Signs Temp 97.9 F 06/20/18 19:50 Pulse 135 H 06/20/18 19:50 Resp 23 06/20/18 19:50 BP 155/78 H 06/20/18 19:50 Pulse Ox 98 06/20/18 22:58 - Labs Result Diagrams: 06/20/18 19:56 06/20/18 19:56 Labs: Laboratory Results - last 24 hr 06/20/18 06/20/18 06/20/18 19:18 19:52 19:56 WBC 8.9 D RBC 4.30 L Hgb 12.8 Hct 39.5 MCV 91.8 MCH 29.8 MCHC 32.5 L RDW 14.8 H Plt Count 189 MPV 8.5 Neut % (Auto) 67.0 Lymph % (Auto) 21.8 [place] % (Auto) 8.4 Eos % (Auto) 2.2 Baso % (Auto) 0.6 Neut # (Auto) 6.0 Lymph # (Auto) 1.9 [place] # (Auto) 0.7 Eos # (Auto) 0.2 Baso # (Auto) 0.1 PT INR APTT pO2 66 H VBG pH 7.31 L VBG pCO2 56 VBG HCO3 25.4 VBG Total CO2 29.9 H VBG O2 Sat (Calc) 95.8 H VBG Base Excess 0.8 VBG Potassium 4.3 Sodium 136.0 Chloride 104.0 Glucose 233 H Lactate 1.5 FiO2 21.0 Potassium Carbon Dioxide Anion Gap BUN Creatinine Est GFR ( Amer) Est GFR (Non-Af Amer) POC Glucose (mg/dL) 200 H Random Glucose Calcium Phosphorus Magnesium Total Bilirubin AST ALT Alkaline Phosphatase Total Protein Albumin Globulin Albumin/Globulin Ratio Venous Blood Potassium 4.3 06/20/18 06/20/18 19:56 19:56 WBC RBC Hgb Hct MCV MCH MCHC RDW Plt Count MPV Neut % (Auto) Lymph % (Auto) [place] % (Auto) Eos % (Auto) Baso % (Auto) Neut # (Auto) Lymph # (Auto) [place] # (Auto) Eos # (Auto) Baso # (Auto) PT 11.4 INR 1.0 APTT 34.5 pO2 VBG pH VBG pCO2 VBG HCO3 VBG Total CO2 VBG O2 Sat (Calc) VBG Base Excess VBG Potassium Sodium 138 Chloride 104 Glucose Lactate FiO2 Potassium 4.4 Carbon Dioxide 28 Anion Gap 10 BUN 30 H Creatinine 0.8 Est GFR ( Amer) > 60 Est GFR (Non-Af Amer) > 60 POC Glucose (mg/dL) Random Glucose 221 H Calcium 10.1 Phosphorus 3.4 Magnesium 1.7 Total Bilirubin 0.3 AST 20 ALT 21 D Alkaline Phosphatase 75 Total Protein 7.3 Albumin 3.8 Globulin 3.5 Albumin/Globulin Ratio 1.1 Venous Blood Potassium Assessment & Plan (1) Altered mental status Status: Acute (2) Afib Status: Chronic (3) HTN (hypertension) Status: Chronic (4) Chronic leg pain Status: Chronic (5) Diabetes type 2, uncontrolled Status: Chronic - Assessment and Plan (Free Text) Assessment: 78 y/o man w/ pmh of HTN, DM2, afib, chronic bilateral lower extremity pain is brought from long term by ambulance for AMS Plan: AMS - brought by ambulance from long term - unwitnessed etiology of AMS, possibly secondary to infection vs. dehydration, vs. 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 Mild diffuse atrophy overall. There is some discordance with greater prominence of the central ventricular system. Some degree of normal pressure hydrocephalus is not excluded. 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 Otherwise negative noncontrast head CT. - XR foot: (preliminary) osteoarthritic joints but no acute fractures or dislocation appreciated - blood culture - urine culture - haldol 5 mg IM once - ativan 2 mg IV once - morphine 2 mg IV once - f/u CBC, CMP - f/u repeat EKG - podiatry consult ordered - consider neurology consult - admit to Tele - monitor for acute changes Afib - patient has Hx of afib - EKG: afib w/ RVR - Cardizem IV 5mg /hr - cardizem 10 mg IV once - lovenox 90 mg SC once - c/w plavix, coreg - cardiology consult ordered - monitor for acute changes Chronic leg pain - Hx of bilateral leg pain - morphine 2 mg IV for severe pain HTN - BP mildly elevated - c/w coreg and ramipril DM2 - non-insulin dependent - c/w glimepiride, pioglitazone, neurontin - insulin correction scale - hypoglycemic protocol Prophylactic measures -DVT: 40 mg SC daily <Jax Wood - Last Filed: 06/21/18 06:14> Results - Vital Signs Recent Vital Signs: Last Vital Signs Temp 97.6 F 06/21/18 02:45 Pulse 129 H 06/21/18 04:03 Resp 22 06/21/18 03:31 BP 136/96 H 06/21/18 02:45 Pulse Ox 98 06/21/18 04:03 - Labs Result Diagrams: 06/20/18 19:56 06/20/18 19:56 Labs: Laboratory Results - last 24 hr 06/20/18 06/20/18 06/20/18 19:18 19:52 19:56 WBC 8.9 D RBC 4.30 L Hgb 12.8 Hct 39.5 MCV 91.8 MCH 29.8 MCHC 32.5 L RDW 14.8 H Plt Count 189 MPV 8.5 Neut % (Auto) 67.0 Lymph % (Auto) 21.8 [place] % (Auto) 8.4 Eos % (Auto) 2.2 Baso % (Auto) 0.6 Neut # (Auto) 6.0 Lymph # (Auto) 1.9 [place] # (Auto) 0.7 Eos # (Auto) 0.2 Baso # (Auto) 0.1 PT INR APTT pO2 66 H VBG pH 7.31 L VBG pCO2 56 VBG HCO3 25.4 VBG Total CO2 29.9 H VBG O2 Sat (Calc) 95.8 H VBG Base Excess 0.8 VBG Potassium 4.3 Sodium 136.0 Chloride 104.0 Glucose 233 H Lactate 1.5 FiO2 21.0 Potassium Carbon Dioxide Anion Gap BUN Creatinine Est GFR ( Amer) Est GFR (Non-Af Amer) POC Glucose (mg/dL) 200 H Random Glucose Calcium Phosphorus Magnesium Total Bilirubin AST ALT Alkaline Phosphatase Total Protein Albumin Globulin Albumin/Globulin Ratio Venous Blood Potassium 4.3 06/20/18 06/20/18 06/21/18 19:56 19:56 01:35 WBC RBC Hgb Hct MCV MCH MCHC RDW Plt Count MPV Neut % (Auto) Lymph % (Auto) [place] % (Auto) Eos % (Auto) Baso % (Auto) Neut # (Auto) Lymph # (Auto) [place] # (Auto) Eos # (Auto) Baso # (Auto) PT 11.4 INR 1.0 APTT 34.5 pO2 VBG pH VBG pCO2 VBG HCO3 VBG Total CO2 VBG O2 Sat (Calc) VBG Base Excess VBG Potassium Sodium 138 Chloride 104 Glucose Lactate FiO2 Potassium 4.4 Carbon Dioxide 28 Anion Gap 10 BUN 30 H Creatinine 0.8 Est GFR ( Amer) > 60 Est GFR (Non-Af Amer) > 60 POC Glucose (mg/dL) 213 H Random Glucose 221 H Calcium 10.1 Phosphorus 3.4 Magnesium 1.7 Total Bilirubin 0.3 AST 20 ALT 21 D Alkaline Phosphatase 75 Total Protein 7.3 Albumin 3.8 Globulin 3.5 Albumin/Globulin Ratio 1.1 Venous Blood Potassium 06/21/18 05:17 WBC RBC Hgb Hct MCV MCH MCHC RDW Plt Count MPV Neut % (Auto) Lymph % (Auto) [place] % (Auto) Eos % (Auto) Baso % (Auto) Neut # (Auto) Lymph # (Auto) [place] # (Auto) Eos # (Auto) Baso # (Auto) PT INR APTT pO2 VBG pH VBG pCO2 VBG HCO3 VBG Total CO2 VBG O2 Sat (Calc) VBG Base Excess VBG Potassium Sodium Chloride Glucose Lactate FiO2 Potassium Carbon Dioxide Anion Gap BUN Creatinine Est GFR ( Amer) Est GFR (Non-Af Amer) POC Glucose (mg/dL) 177 H Random Glucose Calcium Phosphorus Magnesium Total Bilirubin AST ALT Alkaline Phosphatase Total Protein Albumin Globulin Albumin/Globulin Ratio Venous Blood Potassium Attending/Attestation - Attestation I have personally seen and examined this patient.: Yes I have fully participated in the care of the patient.: Yes I have reviewed all pertinent clinical information: Yes Notes (Text): 06/21/18 06:03 I Saw, examined and discussed this patient with Dr rey. The assessment and plan represent my direct input. He is a 78 years old male, residing at the long term, Brought to the ED because of worsening Mental status change. He has hx of chronic leg pain and A fib. In the ED The CT head showed chronic infarcts, his Heart Rate was 130s, and he was started on IV Cardizem and therapeutic Lovenox for the A Fib. Cardiology Dr Robins was consulted for the A fib with rapid response, and Dr Toure consulted for the left foot ulceration. Jax Wood MD
[2018-06-21] MEDS ORDERED: Dextrose 50% SYRINGE Inj (50 ml) IV PRN (01:10)
[2018-06-21] MEDS ORDERED: Glucagon Recombinant 1 mg Inj IM PRN (01:10)
[2018-06-21] MEDS: Sodium Chloride 0.9% 1,000 ML IV SCH ×2 (02:00→14:49)
[2018-06-21 06:05] LABS: BASO % 0.5 % (0.0-2.0); EOS % 0.4 % (0.0-4.0); HEMOGLOBIN 11.8 g/dL (12.0-18.0); LYMPH # 1.3 K/uL (1.0-4.3); LYMPH % 16.9 % (20.0-40.0); MEAN CELL VOLUME 90.6 fl (80.0-94.0); MEAN CORPUSCULAR HEMOGLOBIN 30.1 pg (27.0-31.0); MEAN CORPUSCULAR HGB CONC 33.2 g/dL (33.0-37.0); MEAN PLATELET VOLUME 8.3 fl (7.2-11.7); MONO # 0.8 K/uL (0.0-0.8); MONO % 10.4 % (0.0-10.0); NEUT # 5.7 K/uL (1.8-7.0); NEUT % 71.8 % (50.0-75.0); NRBC % 0.1 % (0.0-0.0); RBC 3.92 Mil/uL (4.40-5.90); RED CELL DISTRIBUTION WIDTH 14.5 % (11.5-14.5)
[2018-06-21 06:13] LABS: ALB/GLOB RATIO 1.1 (1.0-2.1); ALBUMIN 3.6 g/dL (3.5-5.0); ALT/SGPT 22 U/L (21-72); AST/SGOT 23 U/L (17-59); BLOOD UREA NITROGEN 31 mg/dl (9-20); CALCIUM 9.9 mg/dL (8.4-10.2); GFR NON-AFRICAN AMERICAN > 60
[2018-06-21 07:04] LABS: SQUAMOUS EPITHIAL 1 /hpf (0-5); URINE BILIRUBIN NEGATIVE (NEGATIVE); URINE BLOOD NEGATIVE (NEGATIVE); URINE CLARITY SLIGHTY-CLOUDY (Clear); URINE COLOR YELLOW (YELLOW); URINE GLUCOSE (UA) 50 mg/dL (Normal); URINE LEUKOCYTE ESTERASE NEG Leu/uL (Negative); URINE PROTEIN >=500 mg/dL (NEGATIVE); URINE UROBILINOGEN 0.2-1.0 mg/dL (0.2-1.0)
[2018-06-21] MEDS: Insulin Lispro (humaLOG) 100 Units/ml Inj SC SCH ×4 (07:04→22:58)
--- NOTE | 2018-06-21 08:13 | RAD ---
Date of service: 06/20/2018 PROCEDURE: Right Foot Radiographs. HISTORY: right foot pain COMPARISON: None. FINDINGS: BONES: There is gross osteopenia likely reflecting advanced osteoporosis. This makes identifying nondisplaced fractures quite difficult. There is a limited deformity of the distal diametaphysis of the right 5th metatarsal bone which is nonspecific and could reflect a chronic fracture. Clinically correlate here for tendinous as an acute fracture is not excluded here. Based on oblique view, this is likely not represent an acute fracture. JOINTS: No subluxation or dislocation degenerative degenerative cortical sclerosis appreciated diffusely throughout the right foot joints. SOFT TISSUES: Extensive vascular calcifications are identified at the midfoot and hindfoot as well as the ankle soft tissue. OTHER FINDINGS: None. IMPRESSION: Advanced osteoporosis suggest severe osteoporosis. Deformity at the distal diametaphysis of the 5th metatarsal bone may reflect chronic old healed fracture or even congenital deformity. Acute fracture is not favored here but clinical correlation is nevertheless advised. No other potential evidence of displaced fracture. No subluxation/dislocation.
[2018-06-21] MEDS ORDERED: Pneumococcal 23-Valent Vaccine IM ONE (08:18)
--- NOTE | 2018-06-21 08:55 | CARD ---
APPROVED REPORT Date of service: 06/21/2018 EKG Measurement Heart [id number] <Conclusion> Atrial fibrillation with rapid ventricular response Rightward axis Abnormal ECG
[2018-06-21] MEDS ORDERED: Enoxaparin 40 mg Syringe SC SCH ×2 (09:00)
[2018-06-21] MEDS ORDERED: Enoxaparin 100 mg Syringe SC SCH (09:00)
--- NOTE | 2018-06-21 09:03 | RAD ---
Date of service: 06/20/2018 HISTORY: Sepsis Patient COMPARISON: Portable chest 12/09/2013. FINDINGS: LUNGS: Patient's lower face obscures the right apex. Study is also underpenetrated accentuating the hilar vascular markings and interstitial pattern. No definitive airspace disease identified bilaterally. Calcified granulomata are suggested at the left apex with possible underlying limited fibrosis. PLEURA: No significant pleural effusion identified, no pneumothorax apparent. CARDIOVASCULAR: Cardiac silhouette appears stable. Borderline pulmonary vascular congestion. OSSEOUS STRUCTURES: No significant abnormalities. VISUALIZED UPPER ABDOMEN: Normal. OTHER FINDINGS: None. IMPRESSION: Borderline pulmonary vascular congestion. No definite alveolitis bilaterally.
--- NOTE | 2018-06-21 09:25 | CARD ---
APPROVED REPORT Date of service: 06/20/2018 <Conclusion> Atrial fibrillation with rapid ventricular response ST depression, consider subendocardial injury Abnormal ECG
--- NOTE | 2018-06-21 09:46 | CP.PCM.CON ---
History of Present Illness - History of Present Illness History of Present Illness: 78 y/o male brought to ED for altered mental status and seizure. Patient is a poor historian and is disoriented. Lying in bed screaming According to shelter he may have had a seizure Pt has a PMH of Atrial Fbrillation EKG: Atrial Fibrillation Monitor shows pt is in Atrial Fib @ 108 BPM He is on Coreg 25mg BID and cardizem drip PMH: Hypertension NIDDM AF PVD, Past Patient History - Tetanus Immunizations Tetanus Immunization: Unknown - Past Medical History & Family History Past Medical History?: Yes - Past Social History Smoking Status: Former Smoker - CARDIAC Hx Atrial Fibrillation: Yes Hx Hypertension: Yes - PULMONARY Hx Respiratory Disorders: No - NEUROLOGICAL Hx Seizures: No - HEENT Hx HEENT Problems: No - RENAL Hx Chronic Kidney Disease: No - ENDOCRINE/METABOLIC Hx Endocrine Disorders: Yes Hx Diabetes Mellitus Type 2: Yes - HEMATOLOGICAL/ONCOLOGICAL Hx Human Immunodeficiency Virus (HIV): No - INTEGUMENTARY Hx Dermatological Problems: No - MUSCULOSKELETAL/RHEUMATOLOGICAL Hx Musculoskeletal Disorders: No Hx Falls: No - GASTROINTESTINAL Hx Gastrointestinal Disorders: No - GENITOURINARY/GYNECOLOGICAL Hx Sexually Transmitted Disorders: No - PSYCHIATRIC Hx Psychophysiologic Disorder: No Hx Substance Use: No - SURGICAL HISTORY Hx Surgeries: No - ANESTHESIA Hx Anesthesia: Yes Hx Anesthesia Reactions: No Hx Malignant Hyperthermia: No Meds Allergies/Adverse Reactions: Allergies Allergy/AdvReac Type Severity Reaction Status Date / Time No Known Allergies Allergy Verified 06/20/18 19:03 - Medications Medications: Current Medications Atorvastatin Calcium (Lipitor) 20 mg PO HS [facility] Carvedilol (Coreg) 25 mg PO Q12H [facility] Last Admin: 06/21/18 01:26 Dose: Not Given Clopidogrel Bisulfate (Plavix) 75 mg PO DAILY [facility] Dextrose (Dextrose 50% Inj) 0 ml IV STAT PRN; Protocol PRN Reason: Hypoglycemia Protocol Dextrose (Glutose 15) 0 gm PO ONCE PRN; Protocol PRN Reason: Hypoglycemia Protocol Enoxaparin Sodium (Lovenox) 80 mg SC Q12H [facility] PRN Reason: Protocol Ergocalciferol (Drisdol 50,000 Intl Units Cap) 1 cap PO QWK [facility] Famotidine (Pepcid) 20 mg PO BID [facility] Gabapentin (Neurontin) 300 mg PO Q8H [facility] Glipizide (Glucotrol Xl) 10 mg PO BRK [facility] Glucagon (Glucagen Diagnostic Kit) 0 mg IM STAT PRN; Protocol PRN Reason: Hypoglycemia Protocol Diltiazem HCl 125 mg/ Sodium (Chloride) 125 mls @ 5 mls/hr IV .Q24H ONE; 5 MG/ HR PRN Reason: Protocol Stop: 06/21/18 20:35 Last Admin: 06/21/18 01:23 Dose: 5 mls/hr Sodium Chloride (Sodium Chloride 0.9%) 1,000 mls @ 100 mls/hr IV .Q10H [facility] Stop: 06/22/18 01:11 Last Admin: 06/21/18 02:00 Dose: 100 mls/hr Insulin Human Lispro (Humalog) 0 units SC ACHS [facility] PRN Reason: Protocol Last Admin: 06/21/18 07:04 Dose: 2 u Morphine Sulfate (Morphine) 2 mg IVP Q6 PRN PRN Reason: Pain, severe (8-10) [id number] Ethyl Esters (Lovaza) 2 gm PO BID [facility] Pioglitazone HCl (Actos) 45 mg PO DAILY [facility] Ramipril (Altace) 10 mg PO DAILY [facility] Physical Exam - Constitutional Appears: Combative, Agitated, Confused - Head Exam Head Exam: ATRAUMATIC - Eye Exam Eye Exam: Normal appearance - ENT Exam ENT Exam: Normal Exam - Neck Exam Neck exam: Positive for: Normal Inspection - Respiratory Exam Respiratory Exam: NORMAL BREATHING PATTERN - Cardiovascular Exam Cardiovascular Exam: Irregular Rhythm Results - Vital Signs Recent Vital Signs: Last Vital Signs Temp 97.3 F L 06/21/18 08:04 Pulse 61 06/21/18 08:04 Resp 18 06/21/18 08:04 BP 105/76 06/21/18 08:04 Pulse Ox 97 06/21/18 08:04 - Labs Result Diagrams: 06/21/18 04:20 06/21/18 04:20 Labs: Laboratory Results - last 24 hr 06/20/18 06/20/18 06/20/18 19:18 19:52 19:56 WBC 8.9 D RBC 4.30 L Hgb 12.8 Hct 39.5 MCV 91.8 MCH 29.8 MCHC 32.5 L RDW 14.8 H Plt Count 189 MPV 8.5 Neut % (Auto) 67.0 Lymph % (Auto) 21.8 Major % (Auto) 8.4 Eos % (Auto) 2.2 Baso % (Auto) 0.6 Neut # (Auto) 6.0 Lymph # (Auto) 1.9 Major # (Auto) 0.7 Eos # (Auto) 0.2 Baso # (Auto) 0.1 PT INR APTT pO2 66 H VBG pH 7.31 L VBG pCO2 56 VBG HCO3 25.4 VBG Total CO2 29.9 H VBG O2 Sat (Calc) 95.8 H VBG Base Excess 0.8 VBG Potassium 4.3 Sodium 136.0 Chloride 104.0 Glucose 233 H Lactate 1.5 FiO2 21.0 Potassium Carbon Dioxide Anion Gap BUN Creatinine Est GFR ( Amer) Est GFR (Non-Af Amer) POC Glucose (mg/dL) 200 H Random Glucose Calcium Phosphorus Magnesium Total Bilirubin AST ALT Alkaline Phosphatase Total Protein Albumin Globulin Albumin/Globulin Ratio Venous Blood Potassium 4.3 Urine Color Urine Clarity Urine pH Ur Specific [place] Urine Protein Urine Glucose (UA) Urine Ketones Urine Blood Urine Nitrate Urine Bilirubin Urine Urobilinogen Ur Leukocyte Esterase Urine RBC (Auto) Urine Microscopic WBC Ur Squamous Epith Cells 06/20/18 06/20/18 06/21/18 19:56 19:56 01:35 WBC RBC Hgb Hct MCV MCH MCHC RDW Plt Count MPV Neut % (Auto) Lymph % (Auto) Major % (Auto) Eos % (Auto) Baso % (Auto) Neut # (Auto) Lymph # (Auto) Major # (Auto) Eos # (Auto) Baso # (Auto) PT 11.4 INR 1.0 APTT 34.5 pO2 VBG pH VBG pCO2 VBG HCO3 VBG Total CO2 VBG O2 Sat (Calc) VBG Base Excess VBG Potassium Sodium 138 Chloride 104 Glucose Lactate FiO2 Potassium 4.4 Carbon Dioxide 28 Anion Gap 10 BUN 30 H Creatinine 0.8 Est GFR ( Amer) > 60 Est GFR (Non-Af Amer) > 60 POC Glucose (mg/dL) 213 H Random Glucose 221 H Calcium 10.1 Phosphorus 3.4 Magnesium 1.7 Total Bilirubin 0.3 AST 20 ALT 21 D Alkaline Phosphatase 75 Total Protein 7.3 Albumin 3.8 Globulin 3.5 Albumin/Globulin Ratio 1.1 Venous Blood Potassium Urine Color Urine Clarity Urine pH Ur Specific [place] Urine Protein Urine Glucose (UA) Urine Ketones Urine Blood Urine Nitrate Urine Bilirubin Urine Urobilinogen Ur Leukocyte Esterase Urine RBC (Auto) Urine Microscopic WBC Ur Squamous Epith Cells 06/21/18 06/21/18 06/21/18 04:20 04:20 05:17 WBC 8.0 RBC 3.92 L Hgb 11.8 L Hct 35.5 MCV 90.6 MCH 30.1 MCHC 33.2 RDW 14.5 Plt Count 178 MPV 8.3 Neut % (Auto) 71.8 Lymph % (Auto) 16.9 L Major % (Auto) 10.4 H Eos % (Auto) 0.4 Baso % (Auto) 0.5 Neut # (Auto) 5.7 Lymph # (Auto) 1.3 Major # (Auto) 0.8 Eos # (Auto) 0.0 Baso # (Auto) 0.0 PT INR APTT pO2 VBG pH VBG pCO2 VBG HCO3 VBG Total CO2 VBG O2 Sat (Calc) VBG Base Excess VBG Potassium Sodium 139 Chloride 106 Glucose Lactate FiO2 Potassium 4.4 Carbon Dioxide 29 Anion Gap 8 L BUN 31 H Creatinine 0.9 Est GFR ( Amer) > 60 Est GFR (Non-Af Amer) > 60 POC Glucose (mg/dL) 177 H Random Glucose 192 H Calcium 9.9 Phosphorus Magnesium Total Bilirubin 0.2 AST 23 ALT 22 Alkaline Phosphatase 56 Total Protein 6.8 Albumin 3.6 Globulin 3.3 Albumin/Globulin Ratio 1.1 Venous Blood Potassium Urine Color Urine Clarity Urine pH Ur Specific [place] Urine Protein Urine Glucose (UA) Urine Ketones Urine Blood Urine Nitrate Urine Bilirubin Urine Urobilinogen Ur Leukocyte Esterase Urine RBC (Auto) Urine Microscopic WBC Ur Squamous Epith Cells 06/21/18 05:45 WBC RBC Hgb Hct MCV MCH MCHC RDW Plt Count MPV Neut % (Auto) Lymph % (Auto) Major % (Auto) Eos % (Auto) Baso % (Auto) Neut # (Auto) Lymph # (Auto) Major # (Auto) Eos # (Auto) Baso # (Auto) PT INR APTT pO2 VBG pH VBG pCO2 VBG HCO3 VBG Total CO2 VBG O2 Sat (Calc) VBG Base Excess VBG Potassium Sodium Chloride Glucose Lactate FiO2 Potassium Carbon Dioxide Anion Gap BUN Creatinine Est GFR ( Amer) Est GFR (Non-Af Amer) POC Glucose (mg/dL) Random Glucose Calcium Phosphorus Magnesium Total Bilirubin AST ALT Alkaline Phosphatase Total Protein Albumin Globulin Albumin/Globulin Ratio Venous Blood Potassium Urine Color Yellow Urine Clarity Slighty-cloudy Urine pH 5.0 Ur Specific [place] 1.022 Urine Protein >=500 Urine Glucose (UA) 50 Urine Ketones Trace Urine Blood Negative Urine Nitrate Negative Urine Bilirubin Negative Urine Urobilinogen 0.2-1.0 Ur Leukocyte Esterase Neg Urine RBC (Auto) 3 Urine Microscopic WBC 3 Ur Squamous Epith Cells 1 Assessment & Plan (1) Atrial fibrillation Assessment and Plan: Pt is already on Coreg and cardizem drip would maintain both for now Status: Acute (2) Altered mental status Status: Acute (3) HTN (hypertension) Status: Chronic (4) PVD (peripheral vascular disease) with claudication Status: Acute (5) Chronic leg pain Status: Chronic (6) Diabetes type 2, uncontrolled Status: Chronic
[2018-06-21] MEDS: GlipiZIDE 10 mg SR Tab PO SCH (09:57)
[2018-06-21] MEDS: Omega-3-Acid Ethyl Esters 1 GM Cap PO SCH ×2 (09:58→17:12)
[2018-06-21] MEDS: Enoxaparin 100 mg Syringe SC SCH ×2 (09:58→22:57)
--- NOTE | 2018-06-21 10:45 | CT ---
Date of service: 06/20/2018 PROCEDURE: CT HEAD WITHOUT CONTRAST. HISTORY: AMS COMPARISON: CT head dated 11/13/2017 TECHNIQUE: Axial computed tomography images were obtained through the head/brain without intravenous contrast. Radiation dose: Total exam DLP = 881.3 mGy-cm. This CT exam was performed using one or more of the following dose reduction techniques: Automated exposure control, adjustment of the mA and/or kV according to patient size, and/or use of iterative reconstruction technique. FINDINGS: HEMORRHAGE: No intracranial hemorrhage. 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 Diffuse cerebral atrophy. Moderate chronic periventricular white matter microvascular ischemic changes. VENTRICLES: Prominent in excess of cerebral atrophy. Ex vacuo dilatation of the left posterior horn. CALVARIUM: Unremarkable. PARANASAL SINUSES: Unremarkable as visualized. No significant inflammatory changes. MASTOID AIR CELLS: Unremarkable as visualized. No inflammatory changes. OTHER FINDINGS: None. IMPRESSION: No acute intracranial pathology. Age-related changes. 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 No significant interval change.
--- NOTE | 2018-06-21 11:49 | CP.PCM.PN ---
Subjective - Date & Time of Evaluation Date of Evaluation: 06/21/18 Time of Evaluation: 11:47 - Subjective Subjective: Patient seen and examined at bedside. Patient is combative and not cooperative. He is confused and not making sense. Unable to obtain ROS secondary to mental status. Objective - Vital Signs/Intake and Output Vital Signs (last 24 hours): Temp Pulse Resp BP Pulse Ox 97.3 F L 61 18 105/76 97 06/21/18 08:04 06/21/18 08:04 06/21/18 08:04 06/21/18 09:59 06/21/18 08:04 - Medications Medications: Current Medications Atorvastatin Calcium (Lipitor) 20 mg PO HS [facility] Carvedilol (Coreg) 25 mg PO Q12H [facility] Last Admin: 06/21/18 01:26 Dose: Not Given Clopidogrel Bisulfate (Plavix) 75 mg PO DAILY [facility] Last Admin: 06/21/18 10:44 Dose: 75 mg Dextrose (Dextrose 50% Inj) 0 ml IV STAT PRN; Protocol PRN Reason: Hypoglycemia Protocol Dextrose (Glutose 15) 0 gm PO ONCE PRN; Protocol PRN Reason: Hypoglycemia Protocol Enoxaparin Sodium (Lovenox) 80 mg SC Q12H [facility] PRN Reason: Protocol Last Admin: 06/21/18 09:58 Dose: 80 mg Ergocalciferol (Drisdol 50,000 Intl Units Cap) 1 cap PO QWK [facility] Famotidine (Pepcid) 20 mg PO BID [facility] Last Admin: 06/21/18 10:48 Dose: 20 mg Gabapentin (Neurontin) 300 mg PO Q8H [facility] Last Admin: 06/21/18 10:43 Dose: 300 mg Glipizide (Glucotrol Xl) 10 mg PO BRK [facility] Last Admin: 06/21/18 09:57 Dose: 10 mg Glucagon (Glucagen Diagnostic Kit) 0 mg IM STAT PRN; Protocol PRN Reason: Hypoglycemia Protocol Diltiazem HCl 125 mg/ Sodium (Chloride) 125 mls @ 5 mls/hr IV .Q24H ONE; 5 MG/ HR PRN Reason: Protocol Stop: 06/21/18 20:35 Last Admin: 06/21/18 01:23 Dose: 5 mls/hr Sodium Chloride (Sodium Chloride 0.9%) 1,000 mls @ 100 mls/hr IV .Q10H [facility] Stop: 06/22/18 01:11 Last Admin: 06/21/18 02:00 Dose: 100 mls/hr Insulin Human Lispro (Humalog) 0 units SC ACHS [facility] PRN Reason: Protocol Last Admin: 06/21/18 07:04 Dose: 2 u Morphine Sulfate (Morphine) 2 mg IVP Q6 PRN PRN Reason: Pain, severe (8-10) Dtove-5-Aows Ethyl Esters (Lovaza) 2 gm PO BID [facility] Last Admin: 06/21/18 09:58 Dose: 2 gm Pioglitazone HCl (Actos) 45 mg PO DAILY [facility] Last Admin: 06/21/18 09:56 Dose: 45 mg Ramipril (Altace) 10 mg PO DAILY [facility] Last Admin: 06/21/18 09:59 Dose: Not Given - Labs Labs: 06/21/18 04:20 06/21/18 04:20 PT 11.4 Seconds (9.8-13.1) 06/20/18 19:56 INR 1.0 06/20/18 19:56 APTT 34.5 Seconds (25.6-37.1) 06/20/18 19:56 - Constitutional Appears: In Acute Distress, Confused - Respiratory Exam Respiratory Exam: Decreased Breath Sounds. absent: Rhonchi, Wheezes Additional comments: Patient unable to provide deep breaths during exam as he is alerted. - Cardiovascular Exam Cardiovascular Exam: Irregular Rhythm, +S1, +S2 - GI/Abdominal Exam GI & Abdominal Exam: Distended (Obese abdomen), Soft, Normal Bowel Sounds. absent: Tenderness - Extremities Exam Extremities Exam: Pedal Edema - Neurological Exam Neurological Exam: Awake (patient is disoriented and confused. ) - Skin Skin Exam: Dry, Intact, Normal Color, Warm Assessment and Plan - Assessment and Plan (Free Text) Assessment: 78 y/o man w/ pmh of HTN, DM2, afib, chronic bilateral lower extremity pain is brought from residential by ambulance for AMS Plan: AMS - Patient admitted to Telemetry. - unwitnessed etiology of AMS, possibly secondary to infection vs. dehydration, vs. seizure - afebrile, tachycardic, elevated BP - EKG: afib w/ RVR - CT head: Moderate chronic ischemic white matter change with areas of old infarct or encephalomalacia involving the left occipital lobe. Mild diffuse atrophy overall. There is some discordance with greater prominence of the central ventricular system. Some degree of normal pressure hydrocephalus is not excluded. 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 Otherwise negative noncontrast head CT. - F/U blood culture - F/U urine culture - f/u repeat EKG - F/U podiatry recommendations - F/U neurology recommendation - monitor for acute changes Afib - patient has Hx of afib - EKG: afib w/ RVR - continue plavix 75mg po daily - Cardiology consult appreciated- continue Cardizem drip and Coreg 25mg po Q12H - Continue Lovenox 90mg SC - monitor for acute changes Chronic leg pain - Hx of bilateral leg pain - morphine 2 mg IV for severe pain HTN - BP mildly elevated - c/w coreg and ramipril DM2 - non-insulin dependent - c/w glimepiride, pioglitazone, neurontin - insulin correction scale - hypoglycemic protocol Prophylactic measures -DVT: 40 mg SC daily
[2018-06-21] MEDS ORDERED: Digoxin 250 mcg (0.25 mg) Tab PO ONE (12:25)
--- NOTE | 2018-06-21 16:06 | CP.PCM.CON ---
History of Present Illness - History of Present Illness History of Present Illness: Podiatry consult note for Dr. Saldana 78 y/o male patient with PMHx of HTN, DM2, afib, chronic bilateral lower extremity pain is brought from longterm by ambulance for AMS. Podiatry was consult due to a wound on the right lower extremity. Patient unable to provide history due to AMS, oriented only to self. No family present at bedside. PMD: Dr. Bergman PMH: HTN, DM2, afib, chronic bilateral lower extremity pain meds: see med list PSH: none Fam: non-contributory SOC: former smoker Review of Systems - Review of Systems All systems: reviewed and no additional remarkable complaints except Review of Systems: As per HPI Past Patient History - Tetanus Immunizations Tetanus Immunization: Unknown - Past Medical History & Family History Past Medical History?: Yes - Past Social History Smoking Status: Former Smoker - CARDIAC Hx Atrial Fibrillation: Yes Hx Hypertension: Yes - PULMONARY Hx Respiratory Disorders: No - NEUROLOGICAL Hx Seizures: No - HEENT Hx HEENT Problems: No - RENAL Hx Chronic Kidney Disease: No - ENDOCRINE/METABOLIC Hx Endocrine Disorders: Yes Hx Diabetes Mellitus Type 2: Yes - HEMATOLOGICAL/ONCOLOGICAL Hx Human Immunodeficiency Virus (HIV): No - INTEGUMENTARY Hx Dermatological Problems: No - MUSCULOSKELETAL/RHEUMATOLOGICAL Hx Musculoskeletal Disorders: No Hx Falls: No - GASTROINTESTINAL Hx Gastrointestinal Disorders: No - GENITOURINARY/GYNECOLOGICAL Hx Sexually Transmitted Disorders: No - PSYCHIATRIC Hx Psychophysiologic Disorder: No Hx Substance Use: No - SURGICAL HISTORY Hx Surgeries: No - ANESTHESIA Hx Anesthesia: Yes Hx Anesthesia Reactions: No Hx Malignant Hyperthermia: No Meds Allergies/Adverse Reactions: Allergies Allergy/AdvReac Type Severity Reaction Status Date / Time No Known Allergies Allergy Verified 06/20/18 19:03 - Medications Medications: Current Medications Atorvastatin Calcium (Lipitor) 20 mg PO HS [facility] Carvedilol (Coreg) 25 mg PO Q12H [facility] Last Admin: 06/21/18 12:18 Dose: 25 mg Clopidogrel Bisulfate (Plavix) 75 mg PO DAILY [facility] Last Admin: 06/21/18 10:44 Dose: 75 mg Dextrose (Dextrose 50% Inj) 0 ml IV STAT PRN; Protocol PRN Reason: Hypoglycemia Protocol Dextrose (Glutose 15) 0 gm PO ONCE PRN; Protocol PRN Reason: Hypoglycemia Protocol Enoxaparin Sodium (Lovenox) 80 mg SC Q12H [facility] PRN Reason: Protocol Last Admin: 06/21/18 09:58 Dose: 80 mg Ergocalciferol (Drisdol 50,000 Intl Units Cap) 1 cap PO QWK [facility] Famotidine (Pepcid) 20 mg PO BID [facility] Last Admin: 06/21/18 10:48 Dose: 20 mg Gabapentin (Neurontin) 300 mg PO Q8H [facility] Last Admin: 06/21/18 10:43 Dose: 300 mg Glipizide (Glucotrol Xl) 10 mg PO BRK [facility] Last Admin: 06/21/18 09:57 Dose: 10 mg Glucagon (Glucagen Diagnostic Kit) 0 mg IM STAT PRN; Protocol PRN Reason: Hypoglycemia Protocol Diltiazem HCl 125 mg/ Sodium (Chloride) 125 mls @ 5 mls/hr IV .Q24H ONE; 5 MG/ HR PRN Reason: Protocol Stop: 06/21/18 20:35 Last Admin: 06/21/18 01:23 Dose: 5 mls/hr Sodium Chloride (Sodium Chloride 0.9%) 1,000 mls @ 100 mls/hr IV .Q10H [facility] Stop: 06/22/18 01:11 Last Admin: 06/21/18 14:49 Dose: 100 mls/hr Insulin Human Lispro (Humalog) 0 units SC ACHS [facility] PRN Reason: Protocol Last Admin: 06/21/18 14:47 Dose: 2 u Morphine Sulfate (Morphine) 2 mg IVP Q6 PRN PRN Reason: Pain, severe (8-10) [id number] Ethyl Esters (Lovaza) 2 gm PO BID [facility] Last Admin: 06/21/18 09:58 Dose: 2 gm Pioglitazone HCl (Actos) 45 mg PO DAILY [facility] Last Admin: 06/21/18 09:56 Dose: 45 mg Ramipril (Altace) 10 mg PO DAILY [facility] Last Admin: 06/21/18 09:59 Dose: Not Given Physical Exam - Constitutional Appears: Well, Non-toxic, No Acute Distress - Head Exam Head Exam: ATRAUMATIC, NORMOCEPHALIC - Extremities Exam Additional comments: Bilateral Lower Extremity Exam unable to examine as patient agitated DERM: 1 cm X 1 cm superficial skin ulceration noted to the right lateral malleolus, negative probe to bone, no drainage, no tunneling, no tracking, base 100% fibrotic, minimal erythema noted to the area, no clinical signs of infection, erythema noted bilateral heel - Neurological Exam Neurological exam: Altered - Psychiatric Exam Psychiatric exam: Agitated Results - Vital Signs Recent Vital Signs: Last Vital Signs Temp 98.8 F 06/21/18 15:45 Pulse 72 06/21/18 15:45 Resp 20 06/21/18 15:45 BP 139/65 06/21/18 15:45 Pulse Ox 96 06/21/18 15:45 - Labs Result Diagrams: 06/21/18 04:20 06/21/18 04:20 Labs: Laboratory Results - last 24 hr 06/20/18 06/20/18 06/20/18 19:18 19:52 19:56 WBC 8.9 D RBC 4.30 L Hgb 12.8 Hct 39.5 MCV 91.8 MCH 29.8 MCHC 32.5 L RDW 14.8 H Plt Count 189 MPV 8.5 Neut % (Auto) 67.0 Lymph % (Auto) 21.8 [place] % (Auto) 8.4 Eos % (Auto) 2.2 Baso % (Auto) 0.6 Neut # (Auto) 6.0 Lymph # (Auto) 1.9 [place] # (Auto) 0.7 Eos # (Auto) 0.2 Baso # (Auto) 0.1 PT INR APTT pO2 66 H VBG pH 7.31 L VBG pCO2 56 VBG HCO3 25.4 VBG Total CO2 29.9 H VBG O2 Sat (Calc) 95.8 H VBG Base Excess 0.8 VBG Potassium 4.3 Sodium 136.0 Chloride 104.0 Glucose 233 H Lactate 1.5 FiO2 21.0 Potassium Carbon Dioxide Anion Gap BUN Creatinine Est GFR ( Amer) Est GFR (Non-Af Amer) POC Glucose (mg/dL) 200 H Random Glucose Calcium Phosphorus Magnesium Total Bilirubin AST ALT Alkaline Phosphatase Total Protein Albumin Globulin Albumin/Globulin Ratio Venous Blood Potassium 4.3 Urine Color Urine Clarity Urine pH Ur Specific [place] Urine Protein Urine Glucose (UA) Urine Ketones Urine Blood Urine Nitrate Urine Bilirubin Urine Urobilinogen Ur Leukocyte Esterase Urine RBC (Auto) Urine Microscopic WBC Ur Squamous Epith Cells 06/20/18 06/20/18 06/21/18 19:56 19:56 01:35 WBC RBC Hgb Hct MCV MCH MCHC RDW Plt Count MPV Neut % (Auto) Lymph % (Auto) [place] % (Auto) Eos % (Auto) Baso % (Auto) Neut # (Auto) Lymph # (Auto) [place] # (Auto) Eos # (Auto) Baso # (Auto) PT 11.4 INR 1.0 APTT 34.5 pO2 VBG pH VBG pCO2 VBG HCO3 VBG Total CO2 VBG O2 Sat (Calc) VBG Base Excess VBG Potassium Sodium 138 Chloride 104 Glucose Lactate FiO2 Potassium 4.4 Carbon Dioxide 28 Anion Gap 10 BUN 30 H Creatinine 0.8 Est GFR ( Amer) > 60 Est GFR (Non-Af Amer) > 60 POC Glucose (mg/dL) 213 H Random Glucose 221 H Calcium 10.1 Phosphorus 3.4 Magnesium 1.7 Total Bilirubin 0.3 AST 20 ALT 21 D Alkaline Phosphatase 75 Total Protein 7.3 Albumin 3.8 Globulin 3.5 Albumin/Globulin Ratio 1.1 Venous Blood Potassium Urine Color Urine Clarity Urine pH Ur Specific [place] Urine Protein Urine Glucose (UA) Urine Ketones Urine Blood Urine Nitrate Urine Bilirubin Urine Urobilinogen Ur Leukocyte Esterase Urine RBC (Auto) Urine Microscopic WBC Ur Squamous Epith Cells 06/21/18 06/21/18 06/21/18 04:20 04:20 05:17 WBC 8.0 RBC 3.92 L Hgb 11.8 L Hct 35.5 MCV 90.6 MCH 30.1 MCHC 33.2 RDW 14.5 Plt Count 178 MPV 8.3 Neut % (Auto) 71.8 Lymph % (Auto) 16.9 L [place] % (Auto) 10.4 H Eos % (Auto) 0.4 Baso % (Auto) 0.5 Neut # (Auto) 5.7 Lymph # (Auto) 1.3 [place] # (Auto) 0.8 Eos # (Auto) 0.0 Baso # (Auto) 0.0 PT INR APTT pO2 VBG pH VBG pCO2 VBG HCO3 VBG Total CO2 VBG O2 Sat (Calc) VBG Base Excess VBG Potassium Sodium 139 Chloride 106 Glucose Lactate FiO2 Potassium 4.4 Carbon Dioxide 29 Anion Gap 8 L BUN 31 H Creatinine 0.9 Est GFR ( Amer) > 60 Est GFR (Non-Af Amer) > 60 POC Glucose (mg/dL) 177 H Random Glucose 192 H Calcium 9.9 Phosphorus Magnesium Total Bilirubin 0.2 AST 23 ALT 22 Alkaline Phosphatase 56 Total Protein 6.8 Albumin 3.6 Globulin 3.3 Albumin/Globulin Ratio 1.1 Venous Blood Potassium Urine Color Urine Clarity Urine pH Ur Specific [place] Urine Protein Urine Glucose (UA) Urine Ketones Urine Blood Urine Nitrate Urine Bilirubin Urine Urobilinogen Ur Leukocyte Esterase Urine RBC (Auto) Urine Microscopic WBC Ur Squamous Epith Cells 06/21/18 06/21/18 05:45 11:05 WBC RBC Hgb Hct MCV MCH MCHC RDW Plt Count MPV Neut % (Auto) Lymph % (Auto) [place] % (Auto) Eos % (Auto) Baso % (Auto) Neut # (Auto) Lymph # (Auto) [place] # (Auto) Eos # (Auto) Baso # (Auto) PT INR APTT pO2 VBG pH VBG pCO2 VBG HCO3 VBG Total CO2 VBG O2 Sat (Calc) VBG Base Excess VBG Potassium Sodium Chloride Glucose Lactate FiO2 Potassium Carbon Dioxide Anion Gap BUN Creatinine Est GFR ( Amer) Est GFR (Non-Af Amer) POC Glucose (mg/dL) 198 H Random Glucose Calcium Phosphorus Magnesium Total Bilirubin AST ALT Alkaline Phosphatase Total Protein Albumin Globulin Albumin/Globulin Ratio Venous Blood Potassium Urine Color Yellow Urine Clarity Slighty-cloudy Urine pH 5.0 Ur Specific [place] 1.022 Urine Protein >=500 Urine Glucose (UA) 50 Urine Ketones Trace Urine Blood Negative Urine Nitrate Negative Urine Bilirubin Negative Urine Urobilinogen 0.2-1.0 Ur Leukocyte Esterase Neg Urine RBC (Auto) 3 Urine Microscopic WBC 3 Ur Squamous Epith Cells 1 Assessment & Plan - Assessment and Plan (Free Text) Assessment: 78 y/o man w/ pmh of HTN, DM2, afib, chronic bilateral lower extremity pain seen and evaluated for wound to right lower extremity Plan: Patient seen and evaluated at bedside for Dr. Saldana Plan discussed with Dr. Saldana Chart, labs and vitals reviewed- afebrile, absent leukocytosis Wound dressed with Optifoam Bilateral Heels dressed with Optifoam Santyl Ordered for patient Multipodus boots ordered for patient- patient nurse will try if patient tolerates No podiatric surgical intervention at this time Podiatry will follow patient while in house - Date & Time Date: 06/21/18 Time: 16:14
[2018-06-21 17:30] VITALS: PULSE 85
[2018-06-22 06:55] LABS: HEMOGLOBIN 11.9 g/dL (12.0-18.0); MEAN CORPUSCULAR HEMOGLOBIN 30.6 pg (27.0-31.0); RBC 3.9 Mil/uL (4.40-5.90); RED CELL DISTRIBUTION WIDTH 14.4 % (11.5-14.5); WHITE BLOOD COUNT 7.3 K/uL (4.8-10.8)
[2018-06-22 07:42] LABS: BLOOD UREA NITROGEN 22 mg/dl (9-20); CALCIUM 9.8 mg/dL (8.4-10.2); GFR NON-AFRICAN AMERICAN > 60
[2018-06-22] MEDS: Omega-3-Acid Ethyl Esters 1 GM Cap PO SCH (08:20)
[2018-06-22] MEDS: GlipiZIDE 10 mg SR Tab PO SCH (08:21)
[2018-06-22] MEDS: Insulin Lispro (humaLOG) 100 Units/ml Inj SC SCH ×2 (08:22→13:33)
[2018-06-22] MEDS ORDERED: Enoxaparin 80 mg Syringe SC SCH (08:45)
[2018-06-22] MEDS ORDERED: Santyl Collagenase OINTMENT TOP SCH (09:00)
[2018-06-22] MEDS ORDERED: diltiaZEM 180 mg/24 Hours CD Cap PO SCH (09:00)
--- NOTE | 2018-06-22 10:29 | CP.PCM.DIS ---
<Rhea eHard - Last Filed: 06/22/18 10:39> Provider - Provider Date of Admission: 06/20/18 23:56 Attending physician: Jax Wood Consults: 06/21/18 03:17 Wound Care [Nursing Referral for Wound Care] Routine Comment: Physician Instructions: Reason For Exam: right ankle pressure ulcer Time Spent in preparation of Discharge (in minutes): 30 Diagnosis - Discharge Diagnosis (1) Altered mental status Status: Acute (2) Atrial fibrillation Status: Acute Comment: - Cardizem IV 5mg /hr, cardizem 10 mg IV once, lovenox 90 mg SC once, c/w plavix, coreg (3) HTN (hypertension) Status: Chronic (4) Diabetes type 2, uncontrolled Status: Chronic Hospital Course - Lab Results Lab Results: Micro Results 06/20/18 19:40 Blood Blood Culture - Preliminary NO GROWTH AFTER 24 HOURS Most Recent Lab Values WBC 7.3 K/uL (4.8-10.8) 06/22/18 04:20 RBC 3.90 Mil/uL (4.40-5.90) L 06/22/18 04:20 Hgb 11.9 g/dL (12.0-18.0) L 06/22/18 04:20 Hct 35.1 % (35.0-51.0) 06/22/18 04:20 MCV 90.0 fl (80.0-94.0) 06/22/18 04:20 MCH 30.6 pg (27.0-31.0) 06/22/18 04:20 MCHC 34.0 g/dL (33.0-37.0) 06/22/18 04:20 RDW 14.4 % (11.5-14.5) 06/22/18 04:20 Plt Count 181 K/uL (130-400) 06/22/18 04:20 MPV 8.3 fl (7.2-11.7) 06/21/18 04:20 Neut % (Auto) 71.8 % (50.0-75.0) 06/21/18 04:20 Lymph % (Auto) 16.9 % (20.0-40.0) L 06/21/18 04:20 [place] % (Auto) 10.4 % (0.0-10.0) H 06/21/18 04:20 Eos % (Auto) 0.4 % (0.0-4.0) 06/21/18 04:20 Baso % (Auto) 0.5 % (0.0-2.0) 06/21/18 04:20 Neut # (Auto) 5.7 K/uL (1.8-7.0) 06/21/18 04:20 Lymph # (Auto) 1.3 K/uL (1.0-4.3) 06/21/18 04:20 [place] # (Auto) 0.8 K/uL (0.0-0.8) 06/21/18 04:20 Eos # (Auto) 0.0 K/uL (0.0-0.7) 06/21/18 04:20 Baso # (Auto) 0.0 K/uL (0.0-0.2) 06/21/18 04:20 PT 11.4 Seconds (9.8-13.1) 06/20/18 19:56 INR 1.0 06/20/18 19:56 APTT 34.5 Seconds (25.6-37.1) 06/20/18 19:56 pO2 66 mm/Hg (30-55) H 06/20/18 19:52 VBG pH 7.31 (7.32-7.43) L 06/20/18 19:52 VBG pCO2 56 mmHg (40-60) 06/20/18 19:52 VBG HCO3 25.4 mmol/L 06/20/18 19:52 VBG Total CO2 29.9 mmol/L (22-28) H 06/20/18 19:52 VBG O2 Sat (Calc) 95.8 % (40-65) H 06/20/18 19:52 VBG Base Excess 0.8 mmol/L (0.0-2.0) 06/20/18 19:52 VBG Potassium 4.3 mmol/L (3.6-5.2) 06/20/18 19:52 Sodium 136.0 mmol/L (132-148) 06/20/18 19:52 Chloride 104.0 mmol/L (98-107) 06/20/18 19:52 Glucose 233 mg/dL (75-110) H 06/20/18 19:52 Lactate 1.5 mmol/L (0.7-2.1) 06/20/18 19:52 FiO2 21.0 % 06/20/18 19:52 Sodium 139 mmol/l (132-148) 06/22/18 04:20 Potassium 4.1 MMOL/L (3.6-5.0) 06/22/18 04:20 Chloride 107 mmol/L (98-107) 06/22/18 04:20 Carbon Dioxide 26 mmol/L (22-30) 06/22/18 04:20 Anion Gap 10 (10-20) 06/22/18 04:20 BUN 22 mg/dl (9-20) H 06/22/18 04:20 Creatinine 0.7 mg/dl (0.8-1.5) L 06/22/18 04:20 Est GFR ( Amer) > 60 06/22/18 04:20 Est GFR (Non-Af Amer) > 60 06/22/18 04:20 POC Glucose (mg/dL) 114 mg/dL (65-110) H 06/21/18 21:08 Random Glucose 191 mg/dL (75-110) H 06/22/18 04:20 Calcium 9.8 mg/dL (8.4-10.2) 06/22/18 04:20 Phosphorus 3.4 mg/dl (2.5-4.5) 06/20/18 19:56 Magnesium 1.7 MG/DL (1.6-2.3) 06/20/18 19:56 Total Bilirubin 0.2 mg/dl (0.2-1.3) 06/21/18 04:20 AST 23 U/L (17-59) 06/21/18 04:20 ALT 22 U/L (21-72) 06/21/18 04:20 Alkaline Phosphatase 56 U/L (38-126) 06/21/18 04:20 Total Protein 6.8 G/DL (6.3-8.2) 06/21/18 04:20 Albumin 3.6 g/dL (3.5-5.0) 06/21/18 04:20 Globulin 3.3 gm/dL (2.2-3.9) 06/21/18 04:20 Albumin/Globulin Ratio 1.1 (1.0-2.1) 06/21/18 04:20 Venous Blood Potassium 4.3 mmol/L (3.6-5.2) 06/20/18 19:52 Urine Color Yellow (YELLOW) 06/21/18 05:45 Urine Clarity Slighty-cloudy (Clear) 06/21/18 05:45 Urine pH 5.0 (5.0-8.0) 06/21/18 05:45 Ur Specific [place] 1.022 (1.003-1.030) 06/21/18 05:45 Urine Protein >=500 mg/dL (NEGATIVE) 06/21/18 05:45 Urine Glucose (UA) 50 mg/dL (Normal) 06/21/18 05:45 Urine Ketones Trace mg/dL (NEGATIVE) 06/21/18 05:45 Urine Blood Negative (NEGATIVE) 06/21/18 05:45 Urine Nitrate Negative (NEGATIVE) 06/21/18 05:45 Urine Bilirubin Negative (NEGATIVE) 06/21/18 05:45 Urine Urobilinogen 0.2-1.0 mg/dL (0.2-1.0) 06/21/18 05:45 Ur Leukocyte Esterase Neg Joe/uL (Negative) 06/21/18 05:45 Urine RBC (Auto) 3 /hpf (0-3) 06/21/18 05:45 Urine Microscopic WBC 3 /hpf (0-5) 06/21/18 05:45 Ur Squamous Epith Cells 1 /hpf (0-5) 06/21/18 05:45 - Hospital Course Hospital Course: 78 y/o man w/ pmh of HTN, DM2, afib, chronic bilateral lower extremity pain is [facility] from [facility] by ambulance for AMS. Patient had possible unwitnessed seizure in jail. Patient's niece is at bedside visiting another relative in the hospital. Patient unable to provide history due to AMS, oriented only to self. Remaining history from previous admission and ED visits. Patient previously evaluated for bilateral leg pain but refused intervention at that time. 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 Mild diffuse atrophy overall. There is some discordance with greater prominence of the central ventricular system. Some degree of normal pressure hydrocephalus is not excluded. 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 Otherwise negative noncontrast head CT. XR foot: (preliminary) osteoarthritic joints but no acute fractures or dislocation appreciated blood culture and urine culture Medications: Cardizem IV 5mg /hr; cardizem 10 mg IV once; lovenox 90 mg SC once; haldol 5 mg IM once; ativan 2 mg IV once; morphine 2 mg IV once PMD: Dr. Bergman PMH: HTN, DM2, afib, chronic bilateral lower extremity pain Fam: non-contributory SOC: former smoker ROS: was unable to assess due to acuity of AMS Floor Course: Patient was admitted to telemetry for close monitoring. During hospitalization, patient had a few episodes of agitation that lead to elevated BPs. Cardizem drip was discontinued and was given Digoxin 0.5mg x1 and Coreg 25mg po Q12H. On last hospital day, patient was started on Diltiazem 180mg po daily. Discharge Exam - Head Exam Head Exam: ATRAUMATIC, NORMOCEPHALIC - Eye Exam Eye Exam: Normal appearance - ENT Exam ENT Exam: Mucous Membranes Moist - Respiratory Exam Respiratory Exam: Clear to PA & Lateral, NORMAL BREATHING PATTERN. absent: Decreased Breath Sounds, Rales, Rhonchi, Wheezes - Cardiovascular Exam Cardiovascular Exam: Tachycardia, Irregular Rhythm, +S1, +S2. absent: Diastolic murmur, Gallop, Rubs, Systolic Murmur - GI/Abdominal Exam GI & Abdominal Exam: Normal Bowel Sounds. absent: Distended, Firm, Guarding, Mass, Rebound, Rigid, Soft, Tenderness - Extremities Exam Extremities exam: normal inspection Additional comments: Patient has bilateral boots on. - Psychiatric Exam Additional comments: Patient at baseline is confused. - Skin Skin Exam: Dry, Intact, Warm Discharge Plan - Discharge Medications Prescriptions: Ciprofloxacin HCl [Cipro] 500 mg PO Q12H #14 tablet diltiaZEM CD [Cardizem CD] 180 mg PO DAILY #30 c24 - Follow Up Plan Condition: FAIR Disposition: OTHER INSTITUTION Instructions: Atrial Fibrillation, Altered Mental Status (GEN) Additional Instructions: Discharge patient back to jail. Continue home medications. Take new prescription of Diltiazem CD 180mg po daily. <Loraine Andrews - Last Filed: 06/22/18 15:40> Provider - Provider Date of Admission: 06/20/18 23:56 Attending physician: Jax Wood Consults: 06/21/18 03:17 Wound Care [Nursing Referral for Wound Care] Routine Comment: Physician Instructions: Reason For Exam: right ankle pressure ulcer Hospital Course - Lab Results Lab Results: Micro Results 06/21/18 05:45 Urine,Ray Urine Culture - Preliminary Gram Negative [place] 06/20/18 19:40 Blood Blood Culture - Preliminary NO GROWTH AFTER 24 HOURS Most Recent Lab Values WBC 7.3 K/uL (4.8-10.8) 06/22/18 04:20 RBC 3.90 Mil/uL (4.40-5.90) L 06/22/18 04:20 Hgb 11.9 g/dL (12.0-18.0) L 06/22/18 04:20 Hct 35.1 % (35.0-51.0) 06/22/18 04:20 MCV 90.0 fl (80.0-94.0) 06/22/18 04:20 MCH 30.6 pg (27.0-31.0) 06/22/18 04:20 MCHC 34.0 g/dL (33.0-37.0) 06/22/18 04:20 RDW 14.4 % (11.5-14.5) 06/22/18 04:20 Plt Count 181 K/uL (130-400) 06/22/18 04:20 MPV 8.3 fl (7.2-11.7) 06/21/18 04:20 Neut % (Auto) 71.8 % (50.0-75.0) 06/21/18 04:20 Lymph % (Auto) 16.9 % (20.0-40.0) L 06/21/18 04:20 [place] % (Auto) 10.4 % (0.0-10.0) H 06/21/18 04:20 Eos % (Auto) 0.4 % (0.0-4.0) 06/21/18 04:20 Baso % (Auto) 0.5 % (0.0-2.0) 06/21/18 04:20 Neut # (Auto) 5.7 K/uL (1.8-7.0) 06/21/18 04:20 Lymph # (Auto) 1.3 K/uL (1.0-4.3) 06/21/18 04:20 [place] # (Auto) 0.8 K/uL (0.0-0.8) 06/21/18 04:20 Eos # (Auto) 0.0 K/uL (0.0-0.7) 06/21/18 04:20 Baso # (Auto) 0.0 K/uL (0.0-0.2) 06/21/18 04:20 PT 11.4 Seconds (9.8-13.1) 06/20/18 19:56 INR 1.0 06/20/18 19:56 APTT 34.5 Seconds (25.6-37.1) 06/20/18 19:56 pO2 66 mm/Hg (30-55) H 06/20/18 19:52 VBG pH 7.31 (7.32-7.43) L 06/20/18 19:52 VBG pCO2 56 mmHg (40-60) 06/20/18 19:52 VBG HCO3 25.4 mmol/L 06/20/18 19:52 VBG Total CO2 29.9 mmol/L (22-28) H 06/20/18 19:52 VBG O2 Sat (Calc) 95.8 % (40-65) H 06/20/18 19:52 VBG Base Excess 0.8 mmol/L (0.0-2.0) 06/20/18 19:52 VBG Potassium 4.3 mmol/L (3.6-5.2) 06/20/18 19:52 Sodium 136.0 mmol/L (132-148) 06/20/18 19:52 Chloride 104.0 mmol/L (98-107) 06/20/18 19:52 Glucose 233 mg/dL (75-110) H 06/20/18 19:52 Lactate 1.5 mmol/L (0.7-2.1) 06/20/18 19:52 FiO2 21.0 % 06/20/18 19:52 Sodium 139 mmol/l (132-148) 06/22/18 04:20 Potassium 4.1 MMOL/L (3.6-5.0) 06/22/18 04:20 Chloride 107 mmol/L (98-107) 06/22/18 04:20 Carbon Dioxide 26 mmol/L (22-30) 06/22/18 04:20 Anion Gap 10 (10-20) 06/22/18 04:20 BUN 22 mg/dl (9-20) H 06/22/18 04:20 Creatinine 0.7 mg/dl (0.8-1.5) L 06/22/18 04:20 Est GFR ( Amer) > 60 06/22/18 04:20 Est GFR (Non-Af Amer) > 60 06/22/18 04:20 POC Glucose (mg/dL) 151 mg/dL (65-110) H 06/22/18 11:46 Random Glucose 191 mg/dL (75-110) H 06/22/18 04:20 Calcium 9.8 mg/dL (8.4-10.2) 06/22/18 04:20 Phosphorus 3.4 mg/dl (2.5-4.5) 06/20/18 19:56 Magnesium 1.7 MG/DL (1.6-2.3) 06/20/18 19:56 Total Bilirubin 0.2 mg/dl (0.2-1.3) 06/21/18 04:20 AST 23 U/L (17-59) 06/21/18 04:20 ALT 22 U/L (21-72) 06/21/18 04:20 Alkaline Phosphatase 56 U/L (38-126) 06/21/18 04:20 Total Protein 6.8 G/DL (6.3-8.2) 06/21/18 04:20 Albumin 3.6 g/dL (3.5-5.0) 06/21/18 04:20 Globulin 3.3 gm/dL (2.2-3.9) 06/21/18 04:20 Albumin/Globulin Ratio 1.1 (1.0-2.1) 06/21/18 04:20 Venous Blood Potassium 4.3 mmol/L (3.6-5.2) 06/20/18 19:52 Urine Color Yellow (YELLOW) 06/21/18 05:45 Urine Clarity Slighty-cloudy (Clear) 06/21/18 05:45 Urine pH 5.0 (5.0-8.0) 06/21/18 05:45 Ur Specific [place] 1.022 (1.003-1.030) 06/21/18 05:45 Urine Protein >=500 mg/dL (NEGATIVE) 06/21/18 05:45 Urine Glucose (UA) 50 mg/dL (Normal) 06/21/18 05:45 Urine Ketones Trace mg/dL (NEGATIVE) 06/21/18 05:45 Urine Blood Negative (NEGATIVE) 06/21/18 05:45 Urine Nitrate Negative (NEGATIVE) 06/21/18 05:45 Urine Bilirubin Negative (NEGATIVE) 06/21/18 05:45 Urine Urobilinogen 0.2-1.0 mg/dL (0.2-1.0) 06/21/18 05:45 Ur Leukocyte Esterase Neg Joe/uL (Negative) 06/21/18 05:45 Urine RBC (Auto) 3 /hpf (0-3) 06/21/18 05:45 Urine Microscopic WBC 3 /hpf (0-5) 06/21/18 05:45 Ur Squamous Epith Cells 1 /hpf (0-5) 06/21/18 05:45 Attending/Attestation - Attestation I have personally seen and examined this patient.: Yes I have fully participated in the care of the patient.: Yes I have reviewed all pertinent clinical information, including history, physical exam and plan: Yes Notes (Text): AMS likely Delirium due to UTI, improved back to baseline A fib with RVR Paroxysmal - now rate controlled - not candidate for anticoagulation due to severe dementia - cont Coreg and Cardizem Uncontrolled HTN worsened by agiation - cont Coreg, Cardizem and Altace 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
[2018-06-22 16:08] VITALS: BP 132/72; PULSE 73; RESP 20; TEMP 97.9; O2SAT 98
== END 2018-06-22 17:07 | DRG 309 ==
LOC: H.ER 18:57 → H.ERHOLD 23:56 → H.TEL 06-21 02:44
PROVIDERS: ADMIT Internal Medicine; ATTEND Internal Medicine
DX: I48.0 Paroxysmal atrial fibrillation (principal); N39.0 Urinary tract infection, site not specified; F05 Delirium due to known physiological condition; F02.81 Dementia in other diseases classified elsewhere, unspecified severity, with behavioral disturbance; F01.51 Vascular dementia, unspecified severity, with behavioral disturbance; E11.65 Type 2 diabetes mellitus with hyperglycemia; I48.2 Chronic atrial fibrillation; L89.519 Pressure ulcer of right ankle, unspecified stage; B96.4 Proteus (mirabilis) (morganii) as the cause of diseases classified elsewhere; G89.29 Other chronic pain; I10 Essential (primary) hypertension; E11.51 Type 2 diabetes mellitus with diabetic peripheral angiopathy without gangrene; G30.9 Alzheimer's disease, unspecified; Z79.02 Long term (current) use of antithrombotics/antiplatelets; Z79.84 Long term (current) use of oral hypoglycemic drugs; Z87.891 Personal history of nicotine dependence

== ENCOUNTER 2018-08-03 22:53 | Observation (INO) | payer MEDICARE, OTHER ==
[2018-08-03 22:53] VITALS: PULSE 85; BMI 47.5
--- NOTE | 2018-08-03 23:54 | ED PDOC ---
Syncope/Near Syncope/Dizziness Time Seen by Provider: 08/03/18 23:22 Chief Complaint (Nursing): Syncope Chief Complaint (Provider): possible syncope History Per: Patient History/Exam Limitations: no limitations Onset/Duration Of Symptoms: Hrs Current Symptoms Are (Timing): Better Additional Complaint(s): 78 year old male with PMHx of diabetes, HTN and atrial fibrillation presents to the ER from [facility] for dementia with behavioral disturbances. Patient was slumped over a chair and when moved to a bed, he woke up and was sent to the ER for AMS. Patient reports he is alright and denies any complaints stating nothing is bothering him. pt denying any further history. PMD: Dr. Larson Past Medical History Reviewed: Historical Data, Nursing Documentation, Vital Signs Vital Signs: Last Vital Signs Temp 98.7 F 08/03/18 23:03 Pulse 59 L 08/03/18 23:03 Resp 18 08/03/18 23:03 BP 174/67 H 08/03/18 23:03 Pulse Ox 98 08/03/18 23:03 - Medical History PMH: Atrial Fibrillation, Diabetes, HTN Denies: Hepatitis, HIV, Chronic Kidney Disease, Seizures, Sexually Transmitted Disease - Surgical History Surgical History: No Surg Hx - Family History Family History: States: Unknown Family Hx - Social History Current smoker - smoking cessation education provided: No Alcohol: None Drugs: Denies - Home Medications Home Medications: Ambulatory Orders Medication Instructions Recorded RX: Carvedilol [Coreg] 25 mg PO Q12H 11/13/17 RX: Clopidogrel [Plavix] 75 mg PO DAILY 11/13/17 RX: Ergocalciferol (Vitamin D2) 50,000 unit PO QWK 11/13/17 [Vitamin D2] RX: Gabapentin [Neurontin] 300 mg PO Q8H 11/13/17 RX: Glimepiride [amaRYL] 2 mg PO BID 11/13/17 RX: Kttzx-5-Cndx Ethyl Esters 1 GM 2 gm PO BID 11/13/17 [Lovaza] RX: Ramipril [Altace] 10 mg PO DAILY 11/13/17 RX: Simvastatin [Zocor] 40 mg PO HS 11/13/17 RX: Ciprofloxacin HCl [Cipro] 500 mg PO Q12H #14 tablet 06/22/18 RX: Collagenase [Santyl] 1 applic TOP DAILY tube 06/22/18 diltiaZEM CD [Cardizem CD] 180 mg PO DAILY #30 c24 06/22/18 - Allergies Allergies/Adverse Reactions: Allergies Allergy/AdvReac Type Severity Reaction Status Date / Time No Known Allergies Allergy Verified 06/20/18 19:03 Review of Systems ROS Statement: Except As Marked, All Systems Reviewed And Found Negative Constitutional: Negative for: Fever Cardiovascular: Negative for: Chest Pain Gastrointestinal: Negative for: Nausea, Vomiting, Abdominal Pain, Diarrhea Neurological: Negative for: Headache Psych: Positive for: Other (AMS). Negative for: Suicidal ideation (homicidal ) Physical Exam - Reviewed Nursing Documentation Reviewed: Yes Vital Signs Reviewed: Yes - Physical Exam Appears: Positive for: Non-toxic, No Acute Distress Head Exam: Positive for: ATRAUMATIC, NORMAL INSPECTION, NORMOCEPHALIC Skin: Positive for: Normal Color, Warm, Dry Eye Exam: Positive for: EOMI, Normal appearance, PERRL ENT: Positive for: Normal ENT Inspection Neck: Positive for: Normal, Painless ROM, Supple. Negative for: Decreased ROM Cardiovascular/Chest: Positive for: Regular Rate, Rhythm. Negative for: Murmur Respiratory: Positive for: Normal Breath Sounds. Negative for: Decreased Breath Sounds, Wheezing, Respiratory Distress Gastrointestinal/Abdominal: Positive for: Normal Exam, Soft. Negative for: Tenderness, Guarding, Rebound Back: Positive for: Normal Inspection Extremity: Positive for: Normal ROM, Other (bilateral feet have chronic ulcer). Negative for: Tenderness, Pedal Edema, Deformity Neurologic/Psych: Positive for: Alert, Oriented (x3). Negative for: Motor/Sensory Deficits - Laboratory Results Result Diagrams: 08/03/18 23:50 08/03/18 23:50 - ECG O2 Sat by Pulse Oximetry: 98 (RA) Pulse Ox Interpretation: Normal Medical Decision Making Medical Decision Making: Time: 2340 Initial Plan: possible syncope rule out cardiac vs neurologic etiology CMP Drug Screen ED Urine Dipstick CBC w/ Differential Reevaluation Time: 106 CT scan of the head. CLINICAL HISTORY: Syncope. TECHNIQUE: Multiple axial CT images were obtained through the brain without IV contrast material. COMPARISON: 06/20/2018. COMMENTS: Moderate hydrocephalus, unchanged. Asymmetric dilatation of the posterior wall of the left lateral ventricle with associated adjacent chronic encephalomalacia, unchanged. There is normal configuration of sella turcica. There are no intra or extra- axial collections. There is no mass effect or midline shift. There is no evidence of hematoma formation. No hydrocephalus is present. No abnormal calcifications are present. There is diffuse age-appropriate cerebellar and cerebral atrophy with proportionally dilated ventricles and cortical sulci. There are bilateral periventricular and subcortical white matter hypolucencies compatible with mild chronic microvascular disease. Otherwise, no significant focal abnormalities are seen either in the posterior fossa or supratentorial compartment. IMPRESSION: 1. Age-appropriate cerebellar and cerebral atrophy. 2. Mild chronic microvascular disease. Moderate hydrocephalus, unchanged. 3. Asymmetric dilatation of the posterior wall of the left lateral ventricle with associated adjacent chronic encephalomalacia, unchanged. 4. No evidence of acute intracranial pathology. EKG: sinus bradycardia, possible peaks in T waves, rate of 57bpm Labs are benign with high blood sugar. Time: [address] Larson regarding admission (bec it has his [facility] on the [facility] but he said to admit to hospitalist as it is a patient of Dr. Bergman) Scribe Attestation: Documented by Radha Guy, acting as a scribe for Rui Whitaker MD Provider Scribe Attestation: All medical record entries made by the Scribe were at my direction and personal ly dictated by me. I have reviewed the chart and agree that the record accurately reflects my personal performance of the history, physical exam, medical decision making, and the department course for this patient. I have also personally directed, reviewed, and agree with the discharge instructions and disposition. Disposition - Clinical Impression Clinical Impression: Syncope - Patient ED Disposition Is Patient to be Admitted: Yes Counseled Patient/Family Regarding: Studies Performed, Diagnosis - Disposition Disposition Time: 03:00 Condition: STABLE
[2018-08-04 00:24] LABS: BASO % 0.4 % (0.0-2.0); EOS # 0.1 K/uL (0.0-0.7); EOS % 1.4 % (0.0-4.0); HEMOGLOBIN 12.2 g/dL (12.0-18.0); LYMPH # 0.9 K/uL (1.0-4.3); LYMPH % 10.3 % (20.0-40.0); MEAN CELL VOLUME 91.2 fl (80.0-94.0); MEAN CORPUSCULAR HGB CONC 31.8 g/dL (33.0-37.0); MEAN PLATELET VOLUME 8.2 fl (7.2-11.7); MONO # 0.8 K/uL (0.0-0.8); MONO % 9.2 % (0.0-10.0); NEUT # 6.9 K/uL (1.8-7.0); NEUT % 78.7 % (50.0-75.0); RBC 4.2 Mil/uL (4.40-5.90); RED CELL DISTRIBUTION WIDTH 14.3 % (11.5-14.5); WHITE BLOOD COUNT 8.8 K/uL (4.8-10.8)
[2018-08-04 00:34] LABS: ALB/GLOB RATIO 1.1 (1.0-2.1); ALT/SGPT 29 U/L (21-72); AST/SGOT 24 U/L (17-59); BLOOD UREA NITROGEN 47 mg/dl (9-20); CALCIUM 9.8 mg/dL (8.4-10.2); GFR NON-AFRICAN AMERICAN 54
[2018-08-04] MEDS ORDERED: Ergocalciferol 50,000 Intl Units Cap PO SCH (04:00)
--- NOTE | 2018-08-04 04:07 | CP.PCM.HP ---
History of Present Illness - History of Present Illness History of Present Illness: HPI: 78 y/o man w/ pmh of HTN, DM2, afib, chronic bilateral lower extremity pain is brought from half-way by ambulance for AMS and syncope. Patient had possible unwitnessed syncope in half-way. Patient unable to provide history due to AMS, oriented only to self. Remaining history from previous admission and ED visits. PMD: Dr. Bergman PMH: HTN, DM2, afib, chronic bilateral lower extremity pain meds: see med list PSH: none Fam: non-contributory SOC: former smoker ROS: unable to assess due to acuity of AMS ER Course: 98.7, 59, 18, 174/67, 98% CBC: Stable, wnl CMP: stable, wnl Tropx1 negative Follow up UA s/p head CT in ER No meds given Present on Admission - Present on Admission Any Indicators Present on Admission: No Past Patient History - Tetanus Immunizations Tetanus Immunization: Unknown - Past Medical History & Family History Past Medical History?: Yes - Past Social History Smoking Status: Former Smoker - CARDIAC Hx Atrial Fibrillation: Yes Hx Hypertension: Yes - PULMONARY Hx Respiratory Disorders: No - NEUROLOGICAL Hx Seizures: No - HEENT Hx HEENT Problems: No - RENAL Hx Chronic Kidney Disease: No - ENDOCRINE/METABOLIC Hx Endocrine Disorders: Yes Hx Diabetes Mellitus Type 2: Yes - HEMATOLOGICAL/ONCOLOGICAL Hx Human Immunodeficiency Virus (HIV): No - INTEGUMENTARY Hx Dermatological Problems: No - MUSCULOSKELETAL/RHEUMATOLOGICAL Hx Musculoskeletal Disorders: No Hx Falls: No - GASTROINTESTINAL Hx Gastrointestinal Disorders: No - GENITOURINARY/GYNECOLOGICAL Hx Sexually Transmitted Disorders: No - PSYCHIATRIC Hx Psychophysiologic Disorder: No Hx Substance Use: No - SURGICAL HISTORY Hx Surgeries: No - ANESTHESIA Hx Anesthesia: Yes Hx Anesthesia Reactions: No Hx Malignant Hyperthermia: No Meds Allergies/Adverse Reactions: Allergies Allergy/AdvReac Type Severity Reaction Status Date / Time No Known Allergies Allergy Verified 06/20/18 19:03 Physical Exam - Constitutional Appears: Non-toxic, No Acute Distress, Unkempt, Confused - Head Exam Head Exam: ATRAUMATIC - Eye Exam Eye Exam: Normal appearance - ENT Exam ENT Exam: Mucous Membranes Moist - Respiratory Exam Respiratory Exam: Decreased Breath Sounds, NORMAL BREATHING PATTERN. absent: Accessory Muscle Use, Wheezes, Respiratory Distress - Cardiovascular Exam Cardiovascular Exam: Irregular Rhythm, Systolic Murmur - GI/Abdominal Exam GI & Abdominal Exam: Normal Bowel Sounds, Soft. absent: Tenderness - Extremities Exam Extremities exam: Negative for: normal capillary refill, pedal edema, tenderness, pedal pulses present Additional comments: bilateral skin related changes associated w/ CVI and PAD, calf atrophy, pressure ulcers - Back Exam Back exam: absent: CVA tenderness (L), CVA tenderness (R) - Neurological Exam Neurological exam: Altered Additional comments: unable to communicate - Psychiatric Exam Psychiatric exam: Normal Affect - Skin Skin Exam: Dry, Warm Results - Vital Signs Recent Vital Signs: Last Vital Signs Temp 98.7 F 08/03/18 23:03 Pulse 59 L 08/03/18 23:03 Resp 18 08/03/18 23:03 BP 174/67 H 08/03/18 23:03 Pulse Ox 98 08/04/18 03:51 - Labs Result Diagrams: 08/03/18 23:50 08/03/18 23:50 Labs: Laboratory Results - last 24 hr 08/03/18 08/03/18 08/03/18 23:09 23:50 23:50 WBC 8.8 RBC 4.20 L Hgb 12.2 Hct 38.3 MCV 91.2 MCH 29.0 MCHC 31.8 L RDW 14.3 Plt Count 203 MPV 8.2 Neut % (Auto) 78.7 H Lymph % (Auto) 10.3 L [place] % (Auto) 9.2 Eos % (Auto) 1.4 Baso % (Auto) 0.4 Neut # (Auto) 6.9 Lymph # (Auto) 0.9 L [place] # (Auto) 0.8 Eos # (Auto) 0.1 Baso # (Auto) 0.0 Sodium 136 Potassium 5.0 Chloride 104 Carbon Dioxide 23 Anion Gap 14 BUN 47 H Creatinine 1.3 Est GFR ( Amer) > 60 Est GFR (Non-Af Amer) 54 POC Glucose (mg/dL) 122 H Random Glucose 132 H Calcium 9.8 Total Bilirubin 0.3 AST 24 ALT 29 Alkaline Phosphatase 96 Troponin I 0.0790 Total Protein 7.5 Albumin 4.0 Globulin 3.6 Albumin/Globulin Ratio 1.1 Assessment & Plan - Assessment and Plan (Free Text) Assessment: A/P: 78 y/o man w/ pmh of HTN, DM2, afib, chronic bilateral lower extremity pain is brought from half-way by ambulance for Syncope/AMS. Syncope, likely due to dehydration vs infection vs seizures vs vasovagal/cardiac - EKG: A.fib - Trop x1 ngeative - Follow up Head CT, morning EKG, CXR - Follow up UA and prolactine - F/u troponin x2 - Echo and Carotid u/s ordered - Consider Cardio consult A.fib - Chronic - C/w home medications: Plavix, cardizem - monitor for acute changes - F/u EKG and ECHO - Consider Cardio consult - FOllow up TSH Chronic leg pain/ Venous Stasis - Hx of bilateral leg pain - morphine 2 mg IV for severe pain HTN - Chronic - BP mildly elevated - c/w coreg and ramipril DM2 - Chronic - non-insulin dependent - c/w glipizide, neurontin - insulin correction scale - hypoglycemic protocol - C/w Lipitor Prophylactic measures - DVT: 40 mg SC daily
[2018-08-04] MEDS ORDERED: Glucagon Recombinant 1 mg Inj IM PRN (04:41)
[2018-08-04] MEDS ORDERED: Dextrose 50% SYRINGE Inj (50 ml) IV PRN (04:41)
[2018-08-04 07:09] LABS: TROPONIN I 0.084 ng/mL (0.00-0.120)
--- NOTE | 2018-08-04 08:43 | CARD ---
APPROVED REPORT Date of service: 08/03/2018 EKG Measurement Heart [id number] <Conclusion> Sinus bradycardia T wave abnormality, consider lateral ischemia Abnormal ECG
--- NOTE | 2018-08-04 08:43 | CT ---
Date of service: 08/04/2018 PROCEDURE: CT HEAD WITHOUT CONTRAST. HISTORY: syncope COMPARISON: None available. TECHNIQUE: Axial computed tomography images were obtained through the head/brain without intravenous contrast. Radiation dose: Total exam DLP = 850.01 mGy-cm. This CT exam was performed using one or more of the following dose reduction techniques: Automated exposure control, adjustment of the mA and/or kV according to patient size, and/or use of iterative reconstruction technique. FINDINGS: HEMORRHAGE: No intracranial hemorrhage. BRAIN: No mass effect or edema. Generalized cerebral atrophy and bilateral periventricular and subcortical chronic appearing microvascular disease. Similar-appearing old left occipital lobe infarct Incidental bilateral basal ganglionic calcifications not believed to be clinically significant. VENTRICLES: Ventriculomegaly greater than cerebral atrophy-communicating hydrocephalus-a consideration. Findings are similar CALVARIUM: Unremarkable. PARANASAL SINUSES: Unremarkable as visualized. No significant inflammatory changes. MASTOID AIR CELLS: Unremarkable as visualized. No inflammatory changes. OTHER FINDINGS: None. IMPRESSION: No interval intracranial hemorrhage or mass effect. Extensive cerebral atrophy. Extensive chronic microvascular disease. Old left occipital lobe infarct with resultant encephalomalacia changes. Ventriculomegaly-cerebral atrophy discordance. A communicating hydrocephalus is a consideration. Stable appearing Most of the aforementioned findings are concordant with the preliminary [facility] rad report. The ventriculomegaly-cerebral atrophy discordance is discordant with the preliminary [facility] rad report. Clinical correlation and follow-up recommended.
[2018-08-04] MEDS: GlipiZIDE 10 mg SR Tab PO SCH (09:02)
[2018-08-04] MEDS: Omega-3-Acid Ethyl Esters 1 GM Cap PO SCH ×2 (09:07→21:49)
[2018-08-04] MEDS: Insulin Lispro (humaLOG) 100 Units/ml Inj SC SCH ×2 (09:21→21:54)
[2018-08-04] MEDS: diltiaZEM 180 mg/24 Hours CD Cap PO SCH (09:44)
[2018-08-04 10:20] LABS: URINE BILIRUBIN NEGATIVE (NEGATIVE); URINE BLOOD NEGATIVE (NEGATIVE); URINE CLARITY CLEAR (Clear); URINE COLOR YELLOW (YELLOW); URINE GLUCOSE (UA) 50 mg/dL (Normal); URINE HYALINE CAST 0-2 /hpf (0-2); URINE LEUKOCYTE ESTERASE NEG Leu/uL (Negative); URINE PROTEIN 100 mg/dL (NEGATIVE); URINE UROBILINOGEN 0.2-1.0 mg/dL (0.2-1.0)
[2018-08-04] MEDS: Santyl Collagenase OINTMENT TOP SCH (10:44)
--- NOTE | 2018-08-04 15:12 | RAD ---
Date of service: 08/04/2018 HISTORY: Decreased breath sounds/Syncope COMPARISON: Comparison chest 06/20/2018 FINDINGS: LUNGS: Slight increased/coarsened interstitial markings. No focal consolidation. PLEURA: No significant pleural effusion identified, no pneumothorax apparent. CARDIOVASCULAR: Mild aortic atherosclerotic calcification present. Normal cardiac size. No pulmonary vascular congestion. OSSEOUS STRUCTURES: No significant abnormalities. VISUALIZED UPPER ABDOMEN: Normal. OTHER FINDINGS: None. IMPRESSION: Slight increased/coarsened interstitial markings. No focal consolidation.
[2018-08-04] MEDS: Sodium Chloride 0.9% 1,000 ML IV SCH ×2 (19:00→21:50)
--- NOTE | 2018-08-04 20:19 | CARD ---
APPROVED REPORT Date of service: 08/04/2018 EXAM: Two-dimensional and M-mode echocardiogram with Doppler and color Doppler. Other Information Quality : AverageRhythm : NSR Technically limited study due to Poor Echo Windows INDICATION Atrial Fibrillation Syncope 2D DIMENSIONS IVSd1.72 (0.7-1.1cm)LVDd3.46 (3.9-5.9cm) LVOT Diameter1.98 (1.8-2.4cm)PWd1.73 (0.7-1.1cm) IVSs1.71 (0.8-1.2cm)LVDs2.69 (2.5-4.0cm) FS (%) 22.1 %PWs1.52 (0.8-1.2cm) M-Mode DIMENSIONS Left Atrium (MM)4.28 (2.5-4.0cm)IVSd1.56 (0.7-1.1cm) Aortic Root3.16 (2.2-3.7cm)LVDd4.47 (4.0-5.6cm) Aortic Cusp Exc.0.97 (1.5-2.0cm)PWd1.34 (0.7-1.1cm) IVSs1.88 cmFS (%) 54 % LVDs2.06 (2.0-3.8cm)PWs2.28 cm Aortic Valve AoV Peak Uhzmgupj873.6cm/sAoV VTI51.2cmAO Peak GR.18mmHg LVOT Peak Gvugvvrq428.1cm/sLVOT VTI33.07cmAO Mean GR.11mmHg VANESSA (VMAX)0.31yu2DCG (VTI)1.19cm2 Mitral Valve MV E Upacvmmx26.8cm/sMV DECEL [id number] A Sjvboumi907.7cm/s MV VZO114oeN/A ratio0.9MVA (PHT)2.08cm2 TDI Lateral E' Peak V4.73cm/sMedial E' Peak V5.05cm/sE/Lateral E'20.5 E/Medial E'19.2 LEFT VENTRICLE The left ventricle is normal size. There is mild to moderate concentric left ventricular hypertrophy. The left ventricular systolic function is normal. The estimated ejection fraction is 60-65% No regional wall motion abnormalities noted.. Transmitral Doppler flow pattern is Grade I-abnormal relaxation pattern. No left ventricle thrombus noted on this study. There is no ventricular septal defect visualized. There is no left ventricular aneurysm. There is no mass noted in the left ventricle. RIGHT VENTRICLE The right ventricle is normal size. There is normal right ventricular wall thickness. The right ventricular systolic function is normal. ATRIA The left atrium is mildly dilated. The right atrium size is normal. The interatrial septum is intact with no evidence for an atrial septal defect. AORTIC VALVE The aortic valve is normal in structure. No aortic regurgitation is present. There is mild aortic valvular stenosis. Peak aortic velocity is 2.1 m/sec. There is no aortic valvular vegetation. MITRAL VALVE The mitral valve is normal in structure. There is no evidence of mitral valve prolapse. There is no mitral valve stenosis. There is mild mitral valve regurgitation noted. TRICUSPID VALVE The tricuspid valve is normal in structure. There is no tricuspid valve regurgitation noted. There is no tricuspid valve prolapse or vegetation. There is no tricuspid valve stenosis. PULMONIC VALVE The pulmonary valve is normal in structure. There is no pulmonic valvular regurgitation. There is no pulmonic valvular stenosis. GREAT VESSELS The aortic root is normal in size. The ascending aorta is normal in size. The pulmonary artery is normal. The IVC is normal in size and collapses >50% with inspiration. PERICARDIAL EFFUSION There is no pericardial effusion. There is no pleural effusion. <Conclusion> There is mild to moderate concentric left ventricular hypertrophy. The estimated ejection fraction is 60-65% Transmitral Doppler flow pattern is Grade I-abnormal relaxation pattern. The left atrium is mildly dilated. There is mild aortic valvular stenosis. Peak aortic velocity is 2.1 m/sec. There is mild mitral valve regurgitation noted.
[2018-08-04] MEDS ORDERED: Enoxaparin 40 mg Syringe SC SCH (22:00)
[2018-08-04 22:55] LABS: FOLATE 10.5 ng/mL
[2018-08-05] MEDS: GlipiZIDE 10 mg SR Tab PO SCH (09:20)
[2018-08-05] MEDS: Insulin Lispro (humaLOG) 100 Units/ml Inj SC SCH ×3 (09:21→17:48)
[2018-08-05] MEDS: Omega-3-Acid Ethyl Esters 1 GM Cap PO SCH (09:23)
[2018-08-05] MEDS: Sodium Chloride 0.9% 1,000 ML IV SCH (09:25)
[2018-08-05] MEDS: diltiaZEM 180 mg/24 Hours CD Cap PO SCH (10:34)
[2018-08-05] MEDS: Santyl Collagenase OINTMENT TOP SCH (10:36)
--- NOTE | 2018-08-05 11:57 | CP.PCM.DIS ---
Provider - Provider Date of Admission: 08/04/18 01:52 Attending physician: Nida Alvarado MD Time Spent in preparation of Discharge (in minutes): 30 Diagnosis - Discharge Diagnosis (1) Syncope Status: Resolved Hospital Course - Lab Results Lab Results: Micro Results 08/04/18 09:20 Urine Urine Culture - Preliminary Gram Negative Thiago Most Recent Lab Values WBC 8.8 K/uL (4.8-10.8) 08/03/18 23:50 RBC 4.20 Mil/uL (4.40-5.90) L 08/03/18 23:50 Hgb 12.2 g/dL (12.0-18.0) 08/03/18 23:50 Hct 38.3 % (35.0-51.0) 08/03/18 23:50 MCV 91.2 fl (80.0-94.0) 08/03/18 23:50 MCH 29.0 pg (27.0-31.0) 08/03/18 23:50 MCHC 31.8 g/dL (33.0-37.0) L 08/03/18 23:50 RDW 14.3 % (11.5-14.5) 08/03/18 23:50 Plt Count 203 K/uL (130-400) 08/03/18 23:50 MPV 8.2 fl (7.2-11.7) 08/03/18 23:50 Neut % (Auto) 78.7 % (50.0-75.0) H 08/03/18 23:50 Lymph % (Auto) 10.3 % (20.0-40.0) L 08/03/18 23:50 [place] % (Auto) 9.2 % (0.0-10.0) 08/03/18 23:50 Eos % (Auto) 1.4 % (0.0-4.0) 08/03/18 23:50 Baso % (Auto) 0.4 % (0.0-2.0) 08/03/18 23:50 Neut # (Auto) 6.9 K/uL (1.8-7.0) 08/03/18 23:50 Lymph # (Auto) 0.9 K/uL (1.0-4.3) L 08/03/18 23:50 [place] # (Auto) 0.8 K/uL (0.0-0.8) 08/03/18 23:50 Eos # (Auto) 0.1 K/uL (0.0-0.7) 08/03/18 23:50 Baso # (Auto) 0.0 K/uL (0.0-0.2) 08/03/18 23:50 Sodium 136 mmol/l (132-148) 08/03/18 23:50 Potassium 5.0 MMOL/L (3.6-5.0) 08/03/18 23:50 Chloride 104 mmol/L (98-107) 08/03/18 23:50 Carbon Dioxide 23 mmol/L (22-30) 08/03/18 23:50 Anion Gap 14 (10-20) 08/03/18 23:50 BUN 47 mg/dl (9-20) H 08/03/18 23:50 Creatinine 1.3 mg/dl (0.8-1.5) 08/03/18 23:50 Est GFR ( Amer) > 60 08/03/18 23:50 Est GFR (Non-Af Amer) 54 08/03/18 23:50 POC Glucose (mg/dL) 147 mg/dL (65-110) H 08/05/18 10:54 Random Glucose 132 mg/dL (75-110) H 08/03/18 23:50 Calcium 9.8 mg/dL (8.4-10.2) 08/03/18 23:50 Total Bilirubin 0.3 mg/dl (0.2-1.3) 08/03/18 23:50 AST 24 U/L (17-59) 08/03/18 23:50 ALT 29 U/L (21-72) 08/03/18 23:50 Alkaline Phosphatase 96 U/L (38-126) 08/03/18 23:50 Troponin I 0.0840 ng/mL (0.00-0.120) 08/04/18 06:30 Total Protein 7.5 G/DL (6.3-8.2) 08/03/18 23:50 Albumin 4.0 g/dL (3.5-5.0) 08/03/18 23:50 Globulin 3.6 gm/dL (2.2-3.9) 11/06/18 23:50 Albumin/Globulin Ratio 1.1 (1.0-2.1) 08/03/18 23:50 Vitamin B12 387 pg/mL (239-931) 08/04/18 06:30 Folate 10.5 ng/mL 08/04/18 06:30 TSH 3rd Generation 2.06 mIU/ML (0.46-4.68) 08/04/18 06:30 Urine Color Yellow (YELLOW) 08/04/18 09:20 Urine Clarity Clear (Clear) 08/04/18 09:20 Urine pH 5.0 (5.0-8.0) 08/04/18 09:20 Ur Specific Stewart 1.013 (1.003-1.030) 08/04/18 09:20 Urine Protein 100 mg/dL (NEGATIVE) 08/04/18 09:20 Urine Glucose (UA) 50 mg/dL (Normal) 08/04/18 09:20 Urine Ketones Negative mg/dL (NEGATIVE) 08/04/18 09:20 Urine Blood Negative (NEGATIVE) 08/04/18 09:20 Urine Nitrate Negative (NEGATIVE) 08/04/18 09:20 Urine Bilirubin Negative (NEGATIVE) 08/04/18 09:20 Urine Urobilinogen 0.2-1.0 mg/dL (0.2-1.0) 08/04/18 09:20 Ur Leukocyte Esterase Neg Joe/uL (Negative) 08/04/18 09:20 Urine RBC (Auto) 1 /hpf (0-3) 08/04/18 09:20 Urine Microscopic WBC 2 /hpf (0-5) 08/04/18 09:20 Hyaline Casts 0-2 /hpf (0-2) 08/04/18 09:20 - Hospital Course Hospital Course: 78 yo man with pmh of HTN, DM2, afib, chronic bilateral lower extremity pain was brought in from long term by ambulance for suspected syncope. Patient had possible unwitnessed syncope in long term; history obtained via EMR. He was unable to provide history due to dementia; does not speak much but is oriented to self. During the admission, he has remained with stable vital signs and no syncopal events. Urine culture came back positive for gram negative rods and he was given IV ceftriaxone. Today, he states he feels okay, has no complaints. Denies chest pain, shortness of breath, abdominal pain. He appears to be back at his baseline. Discharge Exam - Head Exam Head Exam: ATRAUMATIC - ENT Exam ENT Exam: Mucous Membranes Moist - Respiratory Exam Respiratory Exam: NORMAL BREATHING PATTERN. absent: Wheezes, Respiratory Distress Additional comments: good air entry bilaterally - Cardiovascular Exam Cardiovascular Exam: REGULAR RHYTHM, +S1, +S2 - GI/Abdominal Exam GI & Abdominal Exam: Soft. absent: Tenderness - Extremities Exam Additional comments: no calf tenderness chronic skin changes reflecting chronic venous insufficiency - Neurological Exam Neurological exam: Alert Discharge Plan - Follow Up Plan Condition: STABLE Disposition: TRANSF TO SNF Instructions: Syncope (DC), Syncope (GEN) Additional Instructions: transfer back to [facility]
[2018-08-05 12:34] LABS: PROLACTIN 8.5 ng/mL (3.7-17.9)
--- NOTE | 2018-08-05 15:12 | US ---
Date of service: 08/04/2018 PROCEDURE: Duplex ultrasound of the carotid and vertebral arteries. HISTORY: Syncope COMPARISON: 11/24/2013 TECHNIQUE: Grayscale and duplex Doppler evaluation of the cervical carotid and vertebral arteries were performed. The common carotid, carotid bifurcations and cervical ICA and proximal ECA were evaluated. The vertebral arteries were evaluated for gross patency and direction. FINDINGS: RIGHT CAROTID ARTERIES: Common Carotid Artery: Maximal flow velocity of 53.6 cm/s. Flow not identified from the carotid bulb through the external carotid and vertebral artery. LEFT CAROTID ARTERIES: Common Carotid Artery: Maximal flow velocity of 235.8 cm/s. Carotid Bifurcation: Heterogeneous plaque formation. Internal Carotid Artery:Heterogeneous plaque formation. Maximal flow velocity of 144.6 cm/s. External Carotid Artery (proximal branches): Maximal flow velocity of 207.9 cm/s. ICA/CCA Ratio: 0.6 VERTEBRAL ARTERIES: Right Vertebral Artery: Flow is not documented in the right vertebral artery Left Vertebral Artery: Patent. Antegrade flow. OTHER FINDINGS: Atherosclerotic calcification present. IMPRESSION: Occlusion of the right internal carotid artery. 50-69 % stenoses left internal carotid artery. Reference Internal Carotid Artery (ICA) Peak Systolic Velocity (PSV) for above: 1. Less than 50% stenosis less than 125 cm/s peak systolic velocity 2. 50-69% stenosis 125-230cm/s peak systolic velocity 3. Greater than 70% but less than near occlusion greater than 230 cm/s peak systolic velocity
[2018-08-05 17:23] VITALS: BP 162/55; PULSE 66; RESP 18; TEMP 98.2; O2SAT 95
== END 2018-08-05 18:00 ==
LOC: H.ER 22:53 → H.ERHOLD 08-04 01:52 → H.TEL 08-04 16:22
PROVIDERS: ADMIT Internal Medicine; ATTEND Internal Medicine
DX: R55 Syncope and collapse (principal); I48.2 Chronic atrial fibrillation; G89.29 Other chronic pain; F03.91 Unspecified dementia, unspecified severity, with behavioral disturbance; I87.8 Other specified disorders of veins; I10 Essential (primary) hypertension; E11.9 Type 2 diabetes mellitus without complications; Z87.891 Personal history of nicotine dependence
CPT/HCPCS: 70450; 71045; 80053; 81003; 82607; 82746; 82948; 84146; 84443; 84484; 85025; 87086; 93005; 93306; 93880; 96372; 99285; G0378; J1650; J7030